=== PATIENT | male | born 2000 | race Caucasian/White ===

== ENCOUNTER 2024-04-19 17:36 | Emergency (ER) | payer OTHER, SELFPAY ==
--- NOTE | ~2024-04-19 | CT_ITS ---
EXAMINATION: CT HEAD WITHOUT CONTRAST CLINICAL INFORMATION: L sided facial numbness x 1 month, hearing issue COMPARISON: None. TECHNIQUE: Contiguous axial imaging was performed from the skull base to vertex without intravenous administration of contrast. Coronal and sagittal reformatted images are performed at the CT scanner. [This CT examination was performed using dose optimization techniques as appropriate, variously including the following: *Automated exposure control *Adjustment of mA and/or kV according to patient size (this includes techniques or standardized protocols for targeted exams where dose is matched to indication/reason for exam; i.e. extremities or head) *Use of iterative reconstruction technique] DLP: 680 mGy-cm. FINDINGS: There is no evidence of acute intracranial hemorrhage or territorial infarction. No abnormal mass-effect or midline shift is seen. Cadena to white matter differentiation is well preserved. No extra-axial fluid collections are identified. The ventricles are normal in size. There is no abnormal attenuation within the brain parenchyma. There is no osseous abnormality. The mastoid air cells and visualized portions of the paranasal sinuses are well-aerated. CT/CT head/brain wo IV con IMPRESSION: No acute intracranial pathology.
[2024-04-19 17:41] VITALS: BP 129/81; PULSE 124; RESP 18; TEMP 36.8; O2SAT 98; BMI 18.6
--- NOTE | 2024-04-19 17:41 | ED_ITS ---
HPI - General Adult General Chief complaint: General Medical Stated complaint: left side of face numb Time Seen by Provider: 04/19/24 21:02 Source: patient and family Mode of arrival: ambulatory Limitations: no limitations History of Present Illness ED Provider: RENEE DE LOS SANTOS narrative: 23 yo male with chronic urologic problems and allergies under the care of urologist here with c/o one month initial L side of face was hot now progressed for the past few weeks to face feeling numb - no pain, swelling, prior infection or related to trauma/dental work. He states he came because he went to urgent care and they didn't know what it was. complaint: L facial numbness Onset (ago): week(s) (3) Location: head and face Radiation: non-radiation Severity: mild Quality: other (numb) Relieving factors: none Exacerbating factors: none Associated symptoms: denies other symptoms Treatments prior to arrival: none Related Data Allergies Allergy/AdvReac Type Severity Reaction Status Date / Time peanut Allergy Intermediate Shortness Verified 04/19/24 17:44 of Breath Review of Systems 2 Review of Systems: Constitutional : No Fever, No Chills, No Fatigue ENT/Mouth : No sore throat, No Rhinorrhea Eyes: No Eye Pain, No Swelling, No Redness Cardiovascular : No Chest Pain, No SOB, No Dyspnea on Exertion Respiratory : No Cough, No Sputum Gastrointestinal : No Nausea, No Vomiting, No Diarrhea, No abdominal Pain Genitourinary : No Dysuria, No Urinary Frequency, No Hematuria, Musculoskeletal : No joint pain, No Myalgias, No Joint Swelling Skin : No Skin Lesions, No rash Neuro : No Weakness, pos Numbness, No Dizziness, no Headache Psych : No Anxiety/Panic, No Depression All other systems reviewed and are negative [facility] Past Medical History Attestation statement: The following information was validated with the patient. Source: old records reviewed Medical History Dysuria Social History Social History (Updated 04/19/24 @ 21:51 by Meche Iqbal DO) Patient Tobacco Use Status: Never used Tobacco Advance Directives: No Advance Directives Information Provided: No Do you have a plan to hurt others: No Plan Physical Exam ED Vital Signs: Vital Signs - 24 hr 04/19/24 17:41 04/19/24 20:13 04/19/24 20:47 Temperature 98.2 F 97.7 F 98.1 F Pulse Rate 124 H 105 H 93 Respiratory Rate 18 17 16 Blood Pressure 129/81 126/80 131/80 Pulse Oximetry 98 100 100 Oxygen Delivery Method Room Air Room Air Room Air 04/19/24 22:00 Temperature Pulse Rate 86 Respiratory Rate 16 Blood Pressure 119/69 Pulse Oximetry 100 Oxygen Delivery Method Room Air BMI result Body Mass Index 18.6 Appearance: Alert. Oriented X3. No acute distress. Eyes: Pupils equal, round and reactive to light. ENT: Pharynx normal. TMs normal bilaterally and ears normal Neck: Normal inspection. Neck supple. CVS: Normal heart rate and rhythm. Pulses normal. Respiratory: No respiratory distress. Breath sounds normal. Abdomen: Soft and nontender. Skin: Skin warm and dry. Normal skin color. Normal skin turgor. Extremities: No lower extremity edema. No calf ttp Neuro: Oriented X 3. No motor deficit. No sensory deficit. states he feels the left side of his face feels different when touching compared to the right Course Course Course Narrative: This is a rapid medical exam. deferred additional HPI, ROS, PE to primary provider. 23 yo male with no known past medical history here with complaints of left sided facial hot /numb x 1.5 months. Originally was cheek area, now feels spreading to the ear/forehead prompting concern. Has appt with PCP in one month. Will obtain labs, EKG Mild tachycardia in triage, other vs stable. Pat Capellan APRN Reevaluation(s) Reevaluation #1: suspect tachcyardia due to anxiety Medical Decision Making Medical Decision Making [facility] Narrative: 23 yo male with chronic urologic problems and allergies here with c/o L sided facial numbness x 1 month at this time he reports it along the facial nerve pathway but has no motor deficits and it is not related to URI will obtain tick panel and then obtain CT scan for mass Differential Diagnosis Differential Diagnoses: The differential diagnosis associated with the presentation includes tick disease, anxiety, mass, peripheral nerve issue Admission/Observation Consideration of admission/observation: Escalation of care including admission/observation considered no acute findings 3+ weeks of symptoms can follow up with PCP Lab Data [facility] Lab Attestation statement: I reviewed the patient's lab results. 04/19/24 17:59 06/30/24 17:59 Labs: Lab Results 04/19/24 Range/Units 17:59 WBC 4.1 L (4.8-10.8) X10*3/uL RBC 5.09 (4.60-5.80) X10*6/uL Hgb 15.2 (14.0-18.0) g/dl Hct 43.1 (42.0-52.0) % MCV 84.7 (80.0-98.0) fL MCH 29.9 (27.0-33.0) pg MCHC 35.3 (31.0-36.0) g/dl RDW 13.1 (11.0-16.0) % Plt Count 242 (160-400) X10*3/uL MPV 10.0 (9.4-12.4) fL Immature Gran % (Auto) 0.2 (0.0-0.4) % Neut % (Auto) 49.1 (45-73) % Lymph % (Auto) 35.4 (20-40) % [place] % (Auto) 13.1 H (2-11) % Eos % (Auto) 1.5 (0-4) % Baso % (Auto) 0.7 (0-2) % Lymph # (Auto) 1.5 (1.2-4.9) X10*3/uL [place] # (Auto) 0.5 (0.1-1.2) X10*3/uL Eos # (Auto) 0.1 (0.0-0.4) X10*3/uL Baso # (Auto) 0.0 (0.0-0.2) X10*3/uL Abs Immat Gran (auto) 0.01 (0.00-0.03) X10*3/uL Absolute Neuts (auto) 2.0 (2.0-8.3) x10*3/uL Absolute Nucleated RBC 0.000 (0.0-0.012) X10*3/uL Nucleated RBC % (auto) 0.0 (0.0-0.2) /100WBC Sodium 142 (135-145) mmol/L Potassium 3.7 (3.3-5.1) mmol/L Chloride 106 (96-108) mmol/L Carbon Dioxide 26 (22-29) mmol/L Anion Gap 14 (12-20) BUN 10 (9-16) mg/dL Creatinine 0.76 (0.5-1.4) mg/dL Estim Creat Clear Calc 123.3 Estimated GFR > 60 Random Glucose 75 (60-115) mg/dL Calcium 10.0 (8.4-10.2) mg/dL Magnesium 2.3 (1.6-2.6) mg/dL Total Bilirubin 1.2 H (0.0-1.0) mg/dL Direct Bilirubin 0.4 (0.0-0.5) mg/dL AST 19 (5-37) U/L ALT 12 (0-40) U/L Alkaline Phosphatase 60 (39-117) U/L Troponin I High Sens < 2.7 (<3.5-35.0) ng/L Total Protein 7.6 (6.5-8.0) g/dL Albumin 4.9 (3.5-5.0) g/dL Independent Interpretation I performed an independent interpretation of an: EKG and CT Scan (normal ) Interpretation: Rate: 123 Rhythm: sinus tachycardia [place]: rightwards Normal P waves. Normal SE[place]IAN. Normal QRS complex. ST T wave : normal no MARCI qTC: 443 prior studies: no acute ischemia The study has been interpreted contemporaneously by me. . Radiology Impression Discussion of test interpretation with radiology: I have reviewed the radiologist's reading. Discharge Plan Discharge Clinical Impression: Paresthesia Patient Disposition: Home, Self-Care Instructions: Paresthesia (ED) Additional Instructions: return for worsening symptoms or concerns follow up with primary care doctor no acute findings today on CT scan or labs tick panel and lyme pending if positive we will call CT can no mass or stroke seen FINDINGS: There is no evidence of acute intracranial hemorrhage or territorial infarction. No abnormal mass-effect or midline shift is seen. Cad[place] to white matter differentiation is well preserved. No extra-axial fluid collections are identified. The ventricles are normal in size. There is no abnormal attenuation within the brain parenchyma. There is no osseous abnormality. The mastoid air cells and visualized portions of the paranasal sinuses are well-aerated. CT/CT head/brain wo IV con IMPRESSION: No acute intracranial pathology. Print Language: Somali
--- NOTE | 2024-04-19 17:44 | ECG_ITS ---
Test Reason : TACHYCARDIA Blood Pressure : / mmHG Vent. Rate : 123 BPM Atrial Rate : 123 BPM P-R Int : 162 ms QRS Dur : 082 ms QT Int : 310 ms P-R-T Axes : 079 096 051 degrees QTc Int : 443 ms Sinus tachycardia Possible Left atrial enlargement Rightward axis Borderline ECG No previous ECGs available Referred By: Renee Capellan Electronically Signed By:CARLOS MANUEL WILBURN
[2024-04-19 18:15] LABS: MANUAL DIFF FLAG NO
[2024-04-19 18:16] LABS: Basophils Percent Auto 0.7 % (0-2); Eosinophils Absolute Auto 0.1 X10*3/uL (0.0-0.4); Eosinophils Percent Auto 1.5 % (0-4); Hematocrit 43.1 % (42.0-52.0); Hemoglobin 15.2 g/dl (14.0-18.0); Imm Gran Abs Auto 0.01 X10*3/uL (0.00-0.03); Imm Gran Pct Auto 0.2 % (0.0-0.4); Lymphocytes Absolute Auto 1.5 X10*3/uL (1.2-4.9); Lymphocytes Percent Auto 35.4 % (20-40); Mean Corpuscular HGB Conc 35.3 g/dl (31.0-36.0); Mean Corpuscular Hemoglobin 29.9 pg (27.0-33.0); Mean Corpuscular Volume 84.7 fL (80.0-98.0); Monocytes Absolute Auto 0.5 X10*3/uL (0.1-1.2); Monocytes Percent Auto 13.1 % (2-11); Neutrophils Percent Auto 49.1 % (45-73); Platelet Count 242 X10*3/uL (160-400); Red Blood Count 5.09 X10*6/uL (4.60-5.80); Red Cell Distribution Width 13.1 % (11.0-16.0); White Blood Count 4.1 X10*3/uL (4.8-10.8)
[2024-04-19 18:34] LABS: Alanine Aminotransferase 12 U/L (0-40); Albumin Level 4.9 g/dL (3.5-5.0); Alkaline Phosphatase 60 U/L (39-117); Anion Gap 14 (12-20); Aspartate Amino Transferase 19 U/L (5-37); Bilirubin Direct 0.4 mg/dL (0.0-0.5); Bilirubin Total 1.2 mg/dL (0.0-1.0); Blood Urea Nitrogen 10 mg/dL (9-16); Carbon Dioxide 26 mmol/L (22-29); Chloride 106 mmol/L (96-108); Creatinine Clr Calc Pharmacy 123.3; Estimated Glomerular Filt Rate > 60; Glucose Random 75 mg/dL (60-115); Magnesium 2.3 mg/dL (1.6-2.6); Potassium 3.7 mmol/L (3.3-5.1); Sodium 142 mmol/L (135-145); Total Protein 7.6 g/dL (6.5-8.0)
[2024-04-19 18:43] LABS: Troponin-I High Sensitivity < 2.7 ng/L (<3.5-35.0)
[2024-04-19 20:13] VITALS: BP 126/80; PULSE 105; RESP 17; TEMP 36.5; O2SAT 100
[2024-04-19 20:47] VITALS: BP 131/80; PULSE 93; RESP 16; TEMP 36.7; O2SAT 100
--- NOTE | 2024-04-19 20:47 | MHC.EDTECH ---
pt resting, vital signs checked, call within reach.
[2024-04-19 22:00] VITALS: BP 119/69; PULSE 86; RESP 16; O2SAT 100
--- NOTE | 2024-04-19 22:03 | MHC.EDTECH ---
pt vital signs checked, pt waiting for CT scan, no questions, call within reach.
--- NOTE | 2024-04-19 22:15 | MHC.EDTECH ---
blood collected per provider order, pt tolerated well, call within reach.
[2024-04-20 00:14] VITALS: BP 111/69; PULSE 98; RESP 17; TEMP 36.4; O2SAT 98
[2024-04-20 00:16] VITALS: BP 111/69; PULSE 98; RESP 17; TEMP 36.4; O2SAT 98
[2024-04-21 17:53] LABS: Lyme Abs Screen <0.90 index
[2024-04-22 07:27] LABS: A. Phagocytphilium DNA,RT-PCR NOT DETECTED (NOT DETECTED); Babesia Microti DNA, RT-PCR NOT DETECTED (NOT DETECTED); Borrelia Miyamotoi,DNA RT-PCR NOT DETECTED (NOT DETECTED); E.Chaffeensis DNA RT-PCR NOT DETECTED (NOT DETECTED); Lyme(Borrelia ssp)DNA RT-PCR NOT DETECTED (NOT DETECTED)
== END 2024-04-20 00:17 | disposition home or self-care (01) ==
PROVIDERS: Nurse Practitioner Family; Emergency Provider Emergency Medicine
DX: R00.0 Tachycardia, unspecified (principal); R20.2 Paresthesia of skin; R51.9 Headache, unspecified; Z79.899 Other long term (current) drug therapy
CPT/HCPCS: 36415; 70450; 80048; 80076; 83735; 84484; 85025; 86617; 86618; 87468; 87469; 87478; 87484; 87798; 93005; 99284

== ENCOUNTER → 2024-04-19 17:44 | Outpatient (BNV) | payer OTHER, SELFPAY | PROVIDERS: Emergency Provider Emergency Medicine; Visit Provider Internal Medicine | DX: R00.0 Tachycardia, unspecified (principal); R94.31 Abnormal electrocardiogram [ECG] [EKG] | CPT/HCPCS: 93010 ==

== ENCOUNTER 2025-09-21 16:14 | Inpatient (IN) | payer OTHER, SELFPAY ==
--- OUTSIDE RECORDS SUMMARY | 2025-09-20 11:56 | XMS_ITS | Encounter Summary ---
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 [facility] Opiate Screen, Ur Negative Negative 025 1:50 PM EST [facility] Cannabinoid (THC) Screen, Ur Negative Negative 09/20/2025 1:50 PM EST [facility] Comment:Specimens from patie nts taking pantoprazole sodium (Protonix) have been shown to produce false positive results. Oxycodone Screen, Ur Negative Negative 10/2024 1:50 PM EST [facility] Fentanyl, Ur Negative Negative 09/20/2025 1:50 PM [facility] Urine Urine specimen obtained by clean catch procedure / Unknown Non-blood Collection / Unknown 09/20/2025 1:01 PM EST 09/20/2025 1:[address] [facility] - 09/20/2025 1:50 PM EST Assay cutoffs: Amphetamines 1000 ng/mL Barbiturates 200 ng/mL Benzodiazepines 200 ng/mL Cocaine 300 ng/mL Fentanyl 1 ng/mL Opiates 300 ng/mL Oxycodone 100 ng/mL THC 50 ng/mL Semi-quantitative assay for screening purposes only. Unconfirmed screening result should not be used for non-medical purposes. *ALTERNATE METHOD CONFIRMATION DONE UPON REQUEST ONLY* Rufino Henderson MD LAB URINE ORDERABLES Final Resu lt [facility] [address] [place] [address], [place] [phone] * (ABNORMAL) CBC auto differential (09/20/2025 12:13 PM EST) WBC 4.7(L) 4.8 - 10.8 K/mcL LAB HEMETOLOGY METHOD 09/20/2025 12:49 PM EST [facility] RBC 5.00 4.50 - 5.50 M/mcL LAB HEMETOLOGY METHOD 09/20/2025 12:49 PM EST [facility] Hemoglobin 14.5 13.5 - 17.5 g/dL LAB HEMETOLOGY METHOD 09/20/2025 12:49 PM [facility] Hematocrit 42.1 42.0 - 54.0 % LAB HEMETOLOGY METHOD 09/20/2025 12:49 PM [facility] MCV 83.7 79.0 - 98.0 FL LAB HEMETOLOGY METHOD 09/20/2025 12:49 PM [facility] MCH 28.8 27.0 - 32.0 pcg LAB HEMETOLOGY METHOD 09/20/2025 12:49 PM [facility] MCHC 34.4 32.0 - 37.0 g/dL LAB HEMETOLOGY METHOD 09/20/2025 12:49 PM [facility] RDW 13.5 11.0 - 15.0 % LAB HEMETOLOGY METHOD 09/20/2025 12:49 PM [facility] Platelets 213 130 - 400 K/mcL LAB HEMETOLOGY METHOD 09/20/2025 12:49 PM [facility] MPV 9.8 7.0 - 11.0 FL LAB HEMETOLOGY METHOD 09/20/2025 12:49 PM [facility] NRBC 0.0 <1.0 % LAB HEMETOLOGY METHOD 09/20/2025 12:49 PM [facility] NRBC Absolute 0.00 <0.10 K/mcL LAB HEMETOLOGY METHOD 09/20/2025 12:49 PM [facility] Neutrophils Relative 52.0 % LAB HEMETOLOGY METHOD 09/20/2025 12:49 PM [facility] Lymphocytes Relative 34.0 % LAB HEMETOLOGY METHOD 09/20/2025 12:49 PM [facility] Monocytes Relative 10.3 % LAB HEMETOLOGY METHOD 09/20/2025 12:49 PM [facility] Eosinophils Relative 2.6 % LAB HEMETOLOGY METHOD 09/20/2025 12:49 PM [facility] Basophils Relative 0.9 % LAB HEMETOLOGY METHOD 09/20/2025 12:49 PM [facility] Immature Granulocytes Relative 0.2 % LAB HEMETOLOGY METHOD 09/20/2025 12:49 PM [facility] Neutrophils Absolute 2.44 1.50 - 7.00 K/mcL LAB HEMETOLOGY METHOD 09/20/2025 12:49 PM [facility] Lymphocytes Absolute 1.59 1.00 - 5.00 K/mcL LAB HEMETOLOGY METHOD 09/20/2025 12:49 PM [facility] Monocytes Absolute 0.48 0.20 - 1.00 K/mcL LAB HEMETOLOGY METHOD 09/20/2025 12:49 PM [facility] Eosinophils Absolute 0.12 0.00 - 0.50 K/mcL LAB HEMETOLOGY METHOD 09/20/2025 12:49 PM [facility] Basophils Absolute 0.04 0.00 - 0.20 K/mcL LAB HEMETOLOGY METHOD 09/20/2025 12:49 PM [facility] Immature Granulocytes Absolute 0.01 0.00 - 0.03 K/mcL LAB HEMETOLOGY METHOD 09/20/2025 12:49 PM [facility] Blood Venous blood specimen / Unknown Venipuncture / Unknown 09/20/2025 12:13 PM EST 09/20/2025 12:32 PM EST us Rufino Henderson MD LAB BLOOD ORDERABLES Final Resu lt [facility] [address] [place] [address], * Salicylate level (09/20/2025 12:13 PM EST) Salicylate Level <3.0 2.0 - 29.0 mg/dL 09/20/2025 1:32 PM EST [facility] Blood Venous blood specimen / Unknown Venipuncture / Unknown 09/20/2025 12:13 PM EST 09/20/2025 12:32 PM EST us Rufino Henderson MD LAB BLOOD ORDERABLES Final Resu lt Performing Organization Address City/[facility]/ZIP Co de Phone Number [facility] [address] [place] [address], [place] [phone] * (ABNORMAL) Acetaminophen level (09/20/2025 12:13 PM EST) Acetaminophen Level <2.0(L) 10.0 - 30.0 mcg/mL 09/20/2025 2:57 PM EST [facility] Blood Venous blood specimen / Unknown Venipuncture / Unknown 09/20/2025 12:13 PM EST 09/20/2025 12:32 PM EST us Rufino Henderson MD LAB BLOOD ORDERABLES Final Resu lt Performing Organization Address [facility]/ZIP Co de Phone Number [facility] [address] [place] [address], [place] [phone] * Ethanol (09/20/2025 12:13 PM EST) Ethanol Level <3 0 - 10 mg/dL 09/20/2025 1:32 PM EST [facility] Blood Venous blood specimen / Unknown Venipuncture / Unknown 09/20/2025 12:13 PM EST 09/20/2025 12:32 PM EST us Rufino Henderson MD LAB BLOOD ORDERABLES Final Resu lt Performing Organization Address City/[facility]/ZIP Co de Phone Number [facility] [address] [place] [address], [place] [phone] * (ABNORMAL) Comprehensive metabolic panel (09/20/2025 12:13 PM [facility]) Sodium 138 133 - 145 mmol/L 09/20/2025 1:31 PM [facility] Potassium 3.4(L) 3.5 - 5.5 mmol/L 09/20/2025 1:31 PM [facility] Chloride 100 96 - 110 mmol/L 09/20/2025 1:31 PM [facility] CO2 27 21 - 32 mmol/L 09/20/2025 1:31 PM [facility] Anion Gap 11 3 - 11 09/20/2025 1:31 PM [facility] Glucose 98 70 - 100 mg/dL 09/20/2025 1:31 PM [facility] BUN 17 5 - 25 mg/dL 09/20/2025 1:31 PM [facility] Creatinine 0.84 0.70 - 1.30 mg/dL 09/20/2025 1:31 PM [facility] eGFR 126 >=60 mL/min/1. 73m2 09/20/2025 1:31 PM [facility] Comment:Calculation based on the Chronic Kidney Disease Epidemiology Collaboration (CKD-EPI) equation refit without adjustment for race. BUN/Creatinine Ratio 20.2 09/20/2025 1:31 PM [facility] Calcium 8.4(L) 8.5 - 10.5 mg/dL 09/20/2025 1:31 PM [facility] AST (SGOT) 19 10 - 42 unit/L 09/20/2025 1:31 PM [facility] ALT (SGPT) 19 10 - 60 unit/L 09/20/2025 1:31 PM [facility] Alkaline Phosphatase 76 42 - 121 unit/L 09/20/2025 1:31 PM [facility] Total Protein 7.3 6.0 - 8.0 g/dL 09/20/2025 1:31 PM EST [facility] Albumin 4.7 3.2 - 5.0 g/dL 09/20/2025 1:31 PM EST [facility] Total Bilirubin 0.6 0.0 - 1.4 mg/dL 09/20/2025 1:31 PM EST [facility] Blood Venous blood specimen / Unknown Venipuncture / Unknown 09/20/2025 12:13 PM EST 09/20/2025 12:32 PM EST us Rufino Henderson MD LAB BLOOD ORDERABLES Final Resu lt [facility] [address] [place] [address], documented in this encounter Visit Diagnoses Diagnosis Suicidal ideation- Primary documented in this encounter Orders Diet Count Last Ordered Date First Orde red Date ADULT DIET 1 09/21/2025 Nursing Count Last Ordered Date First Orde red Date VITAL SIGNS 1 09/20/2025 Consult Count Last Ordered Date First Orde red Date IP CONSULT TO PROP ATTENDANT 1 09/20/2025 Precaution Count Last Ordered Date First Orde red Date SUICIDE PRECAUTIONS 1 09/20/2025 Privilege Level Count Last Ordered Date First O rdered Date PATIENT PANAMA HAT BLOCKER 1 09/20/2025 documented in this encounter Care Teams Facility Supervisor Relationship Specialty Start Date End Date Physician, No Pcp PCP - General 09/20/25 documented as of this encounter
--- OUTSIDE RECORDS SUMMARY | 2025-09-21 17:17 | XMS_ITS | Clinical Summary ---
Author Organization [facility] Address [address] [place] [address] Phone Care Team Providers Care Parts Washer Name Role Phone Monserrat BOWMAN, Jesika Vargas Primary Care Provider [phone] Jesika German MD Unavailable [phone] Problems Includes: Problems addressed during this encounter and other active Problems Current Visit Onset Date Resolved Date Provider Altafo n Status Arthralgias Multiple Sites 08/02/2022 Ritu Crow APRN Active Last Documented On 08/02/2022 7:31AM ; [facility] Note: Unchanged Tingling of the Limbs 08/02/2022 Godfrey Crow APRN Active Last Documented On 08/02/2022 7:31AM ; [facility] Note: Unchanged Past Visits Onset Date Resolved Date Provider Condition Status Lactose Intolerance Unknown Jesika anton MD Active Last Documented On 5:40PM ; [facility] Plan of Treatment Advised we would call or send a letter with test results, if does not here from us advised to call us for results - Last Documented On 08/02/2022 7:35AM ; [facility] Advised patient to make sure he is drinking 2 quarts of caffeine free fluids daily and eating healthy - Last Documented On 08/02/2022 7:35AM ; [facility] Medications Includes: Medications discussed during this encounter and other current Medications Past Medications on file methylPREDNISolone 4 MG Oral Tablet Therapy Pack 08/16/2022 - 08/22/2022 Provider: Ritu Crow APRN Diagnosis: Pain in unspecif ied joint as directed Last Documented On 2 11:36AM By Ritu Crow APRN ; [facility] Medications Administered Includes: Administered Medications from this encounter No Administered Medications Recorded Vital Signs Includes: Vital Signs from this encounter Vital Name 08/01/2022 02:47P Blood Pressure Sitting (mmHg) 112/72 Pulse Rate-Sitting (bpm) 94 Height (in) 69 Weight (lb) 124 Body Mass Index (kg/m2) 18.3 Body Surface Area (m2) 1.7 Oxygen Saturation (%) 99 Last Documented: On 08/02/2022 7:30AM ; [facility] 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 No tobacco use 01/16/2021 Last Documented On 2 2:46PM ; [facility] Not a social drinker 01/16/2021 Last Documented On 2 2:46PM ; [facility] Not currently 01/16/2021 Last Documented On 2 2:46PM ; [facility] Not using drugs 01/16/2021 Last Documented On 2 2:46PM ; [facility] Never a smoker 01/16/2021 Last Documented On 2 2:46PM ; [facility] Patient does not have living will 2020 Last Documented On 2 2:46PM ; [facility] Use of tobacco assessment performed 12/20 Last Documented On 2 2:46PM ; [facility] Smoking Status Unknown Medical History Includes: Medical History addressed during this encounter Description Last Updated Compliant with medications 08/02/2022 Last Documented On 2 7:35AM ; [facility] No recent change in medical history 07/21 Last Documented On 2 7:35AM ; [facility] Yes patient feels confident managing chr onic conditions 01/16/2021 Last Documented On 2 2:46PM ; [facility] Physical Exam Includes: Physical Exam from this encounter Allergies Includes: Active Allergies No Known Allergies Encounters Encounter Provider Location Date Check-In Time Check-Out Time Diagnosis Acute / Sick Visit Ritu Crow FAT PURIFICATION WORKER [facility] 605 08/01/20 22 2:15PM 3:17PM Arthralgias Multiple Sites,Assessme nt of Tingling of the Limbs,Eye Disorders Vision
--- OUTSIDE RECORDS SUMMARY | 2025-09-21 17:18 | XMS_ITS | Encounter Summary ---
Author Organization [facility] Address [address] [place] [address] [place] [address] Phone Care Team Providers Care Traveling Sales Executive Name Role Phone Pcp, Unknown Primary Care Provider Azra Ibanez Unavailable [phone] Encounter Details Date Type Department Care Team (Late st Contact Info) Description 05/22/2024 Transcribe Orders [facility] [address] [place] [address] Joselito Payton MD [address] [address] Social History Tobacco Use Types Packs/Day Years Used Date Smoking Tobacco: Never Assessed Education Answer Date Recorded Are you interested in more education? Not on alejandrina e 06/27/2023 Are you concerned about learning? Not on file 06/27/2023 No 06/27/2023 No 06/27/2023 Digital Access Answer Date Recorded No 06/27/2023 No 06/27/2023 Reliable internet access at home? Not on file 06/27/2023 Device with a working camera? Not on file Intimate Partner Violence Answer Date R ecorded Are you denied basic needs s uch as food, clothing, or medical care? No 06/27/2023 In the past 12 months have y ou been in a relationship with a person who hurts, threatens, or tries to control you? No 06/27/2023 Are you denied basic needs s uch as food, clothing, or medical care? No 06/27/2023 In the past 12 months have y ou been in a relationship with a person who hurts, threatens, or tries to control you? No 06/27/2023 Sex and Gender Information Value Date Recorded Sex Assigned at Not on file Legal Sex Male 6:54 PM EDT Gender Identity Not on file Sexual Orientation Not on file documented as of this encounter Plan of Treatment Not on file documented as of this encounter Visit Diagnoses Not on filedocumented in this encounter Care Teams Traveling Sales Executive Relationship Specialty Start Date End Date Pcp, Unknown PCP - General 06/27/23 Azra Hawthorne PA [address] [place] [address] Physician Upper Extremity Surgeon 12/28/24 documented as of this encounter Additional Source Comments The information contained in this document represents components of the legal health record. It is not the complete legal health record.[facility]
--- OUTSIDE RECORDS SUMMARY | 2025-09-21 17:18 | XMS_ITS | Data Portability ---
Author Organization [facility], [address] Address [address] [place] [address] Assessment No assessment recorded. Plan of Treatment Reminders Order Date Submit Date Provider Last Modified By Organization Details Last Modified Time Details Appointments None recorded. Lab None recorded. Referral ENT surgery referral - tenderness and pain x 1 month, need further evaluation and treatment. failing conservativ e treatment. 2023 024 [email or web address] Quinton Luong MD, [address], [facility] [address], [place], [address], 18:21:29 Procedures None recorded. Surgeries None recorded. Imaging None recorded. Medication Orders None recorded. Patient TargetsNo targets recorded. Patient Instructions Encounter Date Encounter Id Patient Instructions Last Modified By Organization Details Last Modified Time 04/17/2024 [id number] head or face pain: care instructions [email or web address] Not available 04/17/2024 18:11:49 Reason for Referral ENT Surgery Referral for Ten derness over maxillary sinus tenderness and pain x 1 month, need further evaluation and treatment. failing conservative treatment tenderness and pain x 1 month, need further evaluation and treatment. failing conservative treatment. Referring Physician: Marc Umaña, Urgent Care, Encounter Date: 04/17/2024 Problems Name Problem SNOMED Code Status Onset Date Resolution Date Notes Provider Name and Address Organization Details Recorded Time Tenderness over maxillary sinus [id number] Active 024 Marc Umaña NP [address] [place], [address], [facility] 18:07:26 Problem Notes None recorded. Medical Equipment None Reported. Vitals Date Recorded Body height Body mass index (BMI) Body weight Respiratory rate Pain severity - 0-10 verbal numeric rating [Score] - Reported Oxygen saturation Heart rate Body temperature Systolic And Diastolic Provider Name and Address Organization Details Last Updated DateTime 175.26 cm 18.5 kg/m2 18777.0 5 g 18 /min 4 98 % 82 /min 98.5 [degF] 112/72 mm[Hg] Lubna Montilla PA - [facility] 17:17:54 Social History Question Answer Notes LastModified by [employer] Details LastModified Time Tobacco Smoking Status Never Smoker Lubna [email or web address] PA - [facility] 04/17/2024 17:15:31 What Is The Highest Grade Or Level Of School You Have Completed Or The Highest Degree You Have Received? [id number] [email or web address] Information not available 04/17/2024 Have You Had A Flu Shot This Season? No [email or web address] Information not available 04/17/2024 If No, Would You Like A Flu Shot Today? A/P [email or web address] Information not available 04/17/2024 Have You Had Direct Contact, Or Contact During Intimacy, With Monkeypox Rash, Scabs, Or Body Fluids From A Person With Monkeypox? No [email or web address] Information not available 04/17/2024 What Was The Date Of Your Most Recent Tobacco Screening? 04/17/2024 [email or web address] Information not available 04/17/2024 Have You Recently Traveled Abroad? No [email or web address] Information not available 04/17/2024 Are You Currently In School? Yes [email or web address] Information not available 04/17/2024 Sex: Unknown Functional Status Question Answer Note LastModified by [employer] Details LastModified Time Do you use any illicit or recreational drugs? No [email or web address] Information not available 04/17/2024 Do you or have you ever used any other forms of tobacco or nicotine? No [email or web address] Information not available 04/17/2024 What is your level of alcohol consumption? None [email or web address] Information not available 04/17/2024 Are you currently employed? No [email or web address] Information not available 04/17/2024 Mental Status None recorded. Family History Relationship Description Onset Age of this Age Resolved Age Notes LastModified by Organization Details LastModified Time Father No current problems or disability [email or web address] Not available 17:14:52 Mother No current problems or disability [email or web address] Not available 17:14:52 Medical History No medical history recorded. Past Encounters Encounter ID Performer Location Encounter Start Date Encounter Closed Date Diagnosis/Indication Diagnosis SNOMED-CT Code Diagnosis ICD10 Code Diagnosis IMO Codes Diagnosis Note [id number] Marc Umaña, [employer] [address] [place] [address] 04/17/2024 15:58:57 04/17/2024 18:21:29 Tenderness over maxillary sinus 270551861 R51.9 Sinusitis is an infection of the lining of the sinus cavities in your head. Sinusitis often follows a cold. It causes pain and pressure in your head and face. In most cases, sinusitis gets better on its own in 1 to 2 weeks. But some mild symptoms may last for several weeks. Sometimes antibiotic s are needed. if you are having problems. It's also a good idea to know your test results and keep a list of the medicines you take. How can you care for yourself at home? Take an over-the-c ounter pain medicine. Avoid Ibuprofen, Aleve and Aspirin if . If the doctor prescribed antibiotic s, take them as directed. Do not stop taking them just because you feel better. You need to take the full course of antibiotic s. Be careful when taking over-the-c ounter cold or influenza (flu) medicines and Tylenol at the same time. Many of these medicines have acetaminop hen, which is Tylenol. Read the labels to make sure that you are not taking more than the recommende d dose. Too much acetaminop hen (Tylenol) can be harmful. Breathe warm, moist air from a steamy shower, a hot bath, or a sink filled with hot water. Avoid cold, dry air. Using a humidifier in your home may help. Follow the directions for cleaning the machine. Use saline (saltwater ) nasal washes. This can help keep your nasal passages open and wash out mucus and bacteria. You can buy saline nose drops at a grocery store or drugstore. Or you can make your own at home by adding 1 teaspoon (5 millilitre s) of salt and 1 teaspoon (5 millilitre s) of baking soda to 2 cups (500 mL) of distilled water. If you make your own, fill a bulb syringe with the solution, insert the tip into your nostril, and squeeze gently. Blow your nose. Put a hot, wet towel or a warm gel pack on your face 3 or 4 times a day for 5 to 10 minutes each time. Try a decongesta nt nasal spray like oxymetazol ine (Drixoral) . Do not use it for more than 3 days in a row. Using it for more than 3 days can make your congestion worse. Health Concerns Section Related Observation LastModified by Organization Detai ls LastModified Time None Recorded Concern Status LastModified by Organization Details LastModified Time None Recorded Advance Directives Directive None Recorded Payers Insurance Date Sequence Insurance Name Policy Number Policy Hill Covered Member ID Hill Member ID Guarantor Name 04/17/2024 1 [employer] (POS) [id number] Deangelo Rendon [id number] Juan Carlos Keen Notes Date Note Type Note Provider Name and Address Organization Details Recorded Time 4 text/html Facial ProblemReported by PatientHPIFor location, patient reportsface leftandupper maxilla(patient is on doxycycline getting pain, numbness and tingling feeling for more then 1 month on left maxillary sinus . no tooth problem. need referral to ent.). For severity, patient reportsworseningbut reportsmild. For associated symptoms, patient reportsnasal congestion,tenderness, andfacial painbut reportsno erythema,no earache,no loss of hearing,no discharge from the ears,no tinnitius,no vertigo,no nausea,no vomiting,no dizziness,no disequilibrium,no eye watering,no dry eyes,no pain in the jaw,no nasal discharge,no slurred speech,no difficulty chewing,no swelling,no difficulty speaking,no hearing loss, andno facial twitch. For onset/timing, patient reportsgradualandmonthly. For quality, patient reportsnumb,tingling, andaching. For duration, patient reports1 monthsandconstant. For context, patient reportsrecent upper respiratory infection. For alleviating factors, patient reportsnone. For aggravating factors, patient reportsnoneandtouching face. Marc Umaña NP [address] [place], [address], [place] - [facility] 04/17/2024 18:12:09
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
--- OUTSIDE RECORDS SUMMARY | 2025-09-21 17:18 | XMS_ITS ---
Author Organization [facility] Address [address] [place] [address] Phone Care Team Providers Care Negative Turner Apprentice Name Role Phone Jesika German MD Primary Care Provider [phone] Jesika German MD Unavailable [phone] Problems Includes: Active, inactive, and resolved Problems All Visits Onset Date Resolved Date Provider Condition S tatus Arthralgias Multiple Sites 08/02/2022 Ritu Crow APRN Active Last Documented On 08/02/2022 7:31AM ; [facility] Note: Unchanged Tingling of the Limbs 08/02/2022 Godfrey Crow APRN Active Last Documented On 08/02/2022 7:31AM ; [facility] Note: Unchanged Lactose Intolerance Unknown Jesika German MD Active Last Documented On 1 5:40PM ; [facility] Plan of Treatment Instructions to patient Return to the clinic if cond ition worsens or new symptoms arise Last Documented On 2 1:17PM ; [facility] Education and Decision Aids were provided during visit for: Clinical staff counseled pat ient to adopt healthy behaviors as appropriate Last Documented On 1 11:55AM ; [facility] Instructions Includes: Instructions for all patient encounters Instructions to patient Return to the clinic if cond ition worsens or new symptoms arise Last Documented On 2 1:17PM ; [facility] Education and Decision Aids were provided during visit for: Clinical staff counseled pat ient to adopt healthy behaviors as appropriate Last Documented On 11:55AM ; [facility] Medications Includes: Current and historical Medications Past Medications on file methylPREDNISolone 4 MG Oral Tablet Therapy Pack 08/16/2022 - 08/22/2022 Provider: Ritu Crow APRN Diagnosis: Pain in unspecif ied joint as directed Last Documented On 2 11:36AM By Ritu Crow APRN ; [facility] Medications Administered Includes: Administered Medications in patient's chart No Administered Medications Recorded Vital Signs Includes: Vital Signs through 09/21/2025 Vital Name 08/16/2022 10:51A 08/01/2022 02:47P 01/16 11:54A Blood Pressure Sitting (mmHg) 122/70 112/72 Pulse Rate-Sitting (bpm) 88 94 113 Weight (lb) 125 124 117 Oxygen Saturation (%) 98 99 Height (in) 69 69 Body Mass Index (kg/m2) 18.3 17.3 Body Surface Area (m2) 1.7 1.6 Blood Pressure Sitting L 118/74 BP Cuff Size Regular Temp-Temporal 98.4 BMI Percentile (percentile) 1 Last Documented: On 08/16/2022 10:55A M ; [facility] On 08/02/2022 7:30AM ; [facility] On 01/16/2021 11:54AM ; [facility] Results Includes: Results through 09/21/2025 CBC AND PLT [place] [facility] Ordered by Ritu Crow APRN on Collected: 08/03/2022 Reported: 08/03/20 22 17:52 Last Documented On 2 2:19PM ; [facility] Reviewed by Ritu zimmerman APRN on 08/05/2022; All test results are final unless otherwise noted. WBC 4.6 10x3/ul (4.5-11.0) N (Normal) Last Documented On 2 10:12PM ; [facility] RBC 4.98 10X6/uL (4.50-5.90) N (Normal) Last Documented On 2 10:12PM ; [facility] HEMOGLOBIN 14.6 g/dL (14.0-17.5) N (Normal) Last Documented On 10:12PM ; [facility] HEMATOCRIT 42.3 % (40.0-52.0) N (Normal) Last Documented On 10:12PM ; [facility] MCV 84.9 fL (80.0-100.0) N (Normal) Last Documented On 10:12PM ; [facility] MCH 29.3 pg (25.0-32.0) N (Normal) Last Documented On 10:12PM ; [facility] MCHC 34.5 g/dL (31.0-37.0) N (Normal) Last Documented On 10:12PM ; [facility] RDW SD 40.9 fL (37.0-54.0) N (Normal) Last Documented On 10:12PM ; [facility] RDW CV 13.3 % (11.0-16.0) N (Normal) Last Documented On 10:12PM ; [facility] PLATELET COUNT 221 10x3/uL (150-400) N (Normal) Last Documented On 10:12PM ; [facility] MPV 11.3 fL (8.2-12.2) N (Normal) Last Documented On 10:12PM ; [facility] SEG 52 % (29-66) N (Normal) Last Documented On 10:12PM ; [facility] LYMPH 35 % (15-49) N (Normal) Last Documented On 10:12PM ; [facility] MONOS 11 % (2-14) N (Normal) Last Documented On 10:12PM ; [facility] EOSINS 1 % (0-5) N (Normal) Last Documented On 10:12PM ; [facility] BASOPHIL 1 % (0-2) N (Normal) Last Documented On 10/14/202 2 10:12PM ; [facility] NUCLEATED RBCS 0 /100WBC (0-1) N (Normal) Last Documented On 2 10:12PM ; [facility] META,MYELO,PRO 0 % (0-5) N (Normal) Last Documented On 2 10:12PM ; [facility] ABSOLUTE NEUT COUNT 2.39 10x3/uL (1.50-7.00) N (Normal) Last Documented On 2 10:12PM ; [facility] Note: CC'd Providers: Specimen Number: [id number] SED RATE [place] Ordered by Ritu Crow APRN on Collected: 08/03/2022 Reported: 08/03/20 22 18:12 Last Documented On 2 2:19PM ; [facility] Reviewed by Ritu Mike in JEWEL LATHE OPERATOR on 08/05/2022; All test results are final unless otherwise noted. SED RATE <1 mm/hr (0-15) N (Normal) Last Documented On 2 10:12PM ; [facility] Note: CC'd Providers: Specimen Number: [id number] VITAMIN D,25 HYDROXY [place] Ordered by Ritu Crow APRN on Collected: 08/03/2022 Reported: 08/03/20 22 18:19 Last Documented On 2 2:19PM ; [facility] Reviewed by Ritu Mike in JEWEL LATHE OPERATOR on 08/05/2022; All test results are final unless otherwise noted. VITAMIN D,25 HYDROXY 15.5 ng/mL (20-100) L (Low) Last Documented On 2 10:12PM ; [facility] Note: PEDIATRIC Vitamin D Status Range ng/mLDeficiency <15Insufficiency 15 - 19Sufficiency 20 - 100CC'd Providers: Specimen Number: [id number] COMP METABOLIC PANEL [place] [facility] Ordered by Ritu Crow APRN on Collected: 08/03/2022 Reported: 08/03/20 22 18:21 Last Documented On 2 2:19PM ; [facility] Reviewed by Ritu Mike in JEWEL LATHE OPERATOR on 08/05/2022; All test results are final unless otherwise noted. ALB/GLOB RATIO 1.3 (1.0-2.2) N (Normal) Last Documented On 2 10:12PM ; [facility] Note: CC'd Providers: Specimen Number: [id number] GLUCOSE 78 mg/dL (70-100) N (Normal) Last Documented On 2 10:12PM ; [facility] SODIUM 137 mmol/L (132-144) N (Normal) Last Documented On 10:12PM ; [facility] POTASSIUM 4.4 mmol/L (3.5-5.1) N (Normal) Last Documented On 10:12PM ; [facility] CHLORIDE 103 mmol/L (98-110) N (Normal) Last Documented On 10:12PM ; [facility] CO2 28 mmol/L (21-32) N (Normal) Last Documented On 10:12PM ; [facility] BUN 13 mg/dL (6-20) N (Normal) Last Documented On 10:12PM ; [facility] CREATININE 0.85 mg/dL (0.70-1.30) N (Normal) Last Documented On 10:12PM ; [facility] GFR, >60 mL/mn (>60) N (Normal) Last Documented On 10:12PM ; [facility] Note: Note: The calculated GFR value ass umes an average adult body size with asurface area of 1.73 square meters. For unusually large or small patients, anadjustment should be made. GFR, AFR. AMER >60 mL/mn (>60) N (Normal) Last Documented On 2 10:12PM ; [facility] CALCIUM 9.6 mg/dL (8.3-9.9) N (Normal) Last Documented On 10:12PM ; [facility] TOTAL BILIRUBIN 1.9 mg/dL (0.2-1.3) H (High) Last Documented On 2 10:12PM ; [facility] ALK PHOS 84 U/L (26-162) N (Normal) Last Documented On 2 10:12PM ; [facility] AST/SGOT 17 U/L (15-37) N (Normal) Last Documented On 2 10:12PM ; [facility] ALT/SGPT 30 U/L (16-61) N (Normal) Last Documented On 2 10:12PM ; [facility] TOTAL PROTEIN 8.0 G/dL (6.4-8.3) N (Normal) Last Documented On 2 10:12PM ; [facility] ALBUMIN 4.5 G/dL (3.2-4.8) N (Normal) Last Documented On 2 10:12PM ; [facility] GLOBULIN 3.5 G/dL (2.0-4.2) N (Normal) Last Documented On 2 10:12PM ; [facility] C REACTIVE PROTEIN [place] [facility] Ordered by Ritu Crow APRN on Collected: 08/03/2022 Reported: 08/03/20 22 18:21 Last Documented On 2 2:19PM ; [facility] Reviewed by Ritu zimmerman APRN on 08/05/2022; All test results are final unless otherwise noted. C REACTIVE PROTEIN <0.3 mg/dL (<0.3) N (Normal) Status: Correction Last Documented On 2 10:12PM ; [facility] Note: NOTE: This test should not be used to determine cardiac risk. The Cardio CRP(HsCRP) is the appropriate test for cardiac risk stratification.NOTE: This test should not be used to determine cardiac risk. The Cardio CRP(HsCRP) is the appropriate test for cardiac risk stratification.CORRECTED ON 08/03 AT 1821: PREVIOUSLY REPORTED <0.3 NOTE: This test shouldnot be used to determine cardiac risk. The Cardio CRP (HsCRP) is theappropriate test for cardiac risk stratification.CC'd Providers: Specimen Number: [id number] LIPID PROF Jian TOWNSEND [facility] Ordered by Ritu Crow JEWEL LATHE OPERATOR on Collected: 08/03/2022 Reported: 08/03/20 22 18:21 Last Documented On 2 2:19PM ; [facility] Reviewed by Ritu Mike in JEWEL LATHE OPERATOR on 08/05/2022; All test results are final unless otherwise noted. CHOLESTEROL 124 mg/dL (107-240) N (Normal) Last Documented On 2 10:12PM ; [facility] TRIGLYCERIDES 62 mg/dL (40-199) N (Normal) Last Documented On 10:12PM ; [facility] HDL CHOLESTEROL 46 mg/dL (35-67) N (Normal) Last Documented On 10:12PM ; [facility] TOTAL/HDL RATIO 2.7 N (Normal) Last Documented On 2 10:12PM ; [facility] LDL CHOLEST 66 mg/dL N (Normal) Last Documented On 2 10:12PM ; [facility] Note: ADULT .............OPTIMAL DESIRAB LE BORDERLINE HIGHRISK VERYHIGH CHOLESTEROL <200 200-240 >240TRIGLYCERIDE <150 150-199 200-500 >500LDL CHOL DIR <100 100-129 130-160 160-189 >/=190HDL CHOLEST. >/=60 <40 The above guidelines follow the national cholesterol education program (NCEP)adult treatment panel III revisions. They are intended to inform, not replace,the physician's clinical judgement. Other risk factors must be considered inestablishing therapeutic goals. HDL CHD RISK 1.00 N (Normal) Status: Correction Last Documented On 2 10:12PM ; [facility] TOT:HDL CHD RISK 1.0 (Low) N (Normal) Status: Correction Last Documented On 10:12PM ; [facility] Note: The above TC:HDL CHD relative risk estimates are for people who also have lowcardio-CRP values, IE. <0.7 mg/L.CC'd Providers: Specimen Number: [id number] TSH [place] [facility] Ordered by Ritu Crow APRN on Collected: 08/03/2022 Reported: 08/03/20 22 18:21 Last Documented On 2 2:19PM ; [facility] Reviewed by Ritu Mike in JEWEL LATHE OPERATOR on 08/05/2022; All test results are final unless otherwise noted. TSH 0.596 uIU/mL (0.463-3.980) N (Normal) Last Documented On 2 10:12PM ; [facility] Note: CC'd Providers: Specimen Number: [id number] LDH [place] [facility] Ordered by Ritu Crow APRN on Collected: 08/03/2022 Reported: 08/03/20 18:21 Last Documented On 2 2:19PM ; [facility] Reviewed by Ritu Mike in JEWEL LATHE OPERATOR on 08/05/2022; All test results are final unless otherwise noted. LDH 150 U/L (87-241) N (Normal) Last Documented On 2 10:12PM ; [facility] Note: CC'd Providers: Specimen Number: [id number] VITAMIN B12 [place] [facility] Ordered by Ritu Crow APRN on Collected: 08/03/2022 Reported: 08/03/20 18:51 Last Documented On 2 2:19PM ; [facility] Reviewed by Ritu Mike in JEWEL LATHE OPERATOR on 08/05/2022; All test results are final unless otherwise noted. VITAMIN B12 508 pg/mL (193-986) N (Normal) Last Documented On 2 10:12PM ; [facility] Note: CC'd Providers: Specimen Number: [id number] FOLIC ACID [place] Ordered by Ritu Crow APRN on Collected: 08/03/2022 Reported: 08/03/20 18:51 Last Documented On 2 2:19PM ; [facility] Reviewed by Ritu Miek in JEWEL LATHE OPERATOR on 08/05/2022; All test results are final unless otherwise noted. FOLIC ACID 22.9 ng/mL (3.1-17.5) H (High) Last Documented On 2 10:12PM ; [facility] Note: CC'd Providers: Specimen Number: [id number] HEP C AB [place] Ordered by Ritu Crow APRN on Collected: 08/03/2022 Reported: 08/03/20 19:02 Last Documented On 2 2:19PM ; [facility] Reviewed by Ritu Mike in JEWEL LATHE OPERATOR on 08/05/2022; All test results are final unless otherwise noted. HEP C AB NONREACTIVE (NONREACTIVE) N (Normal) Last Documented On 2 10:12PM ; [facility] Note: CC'd Providers: Specimen Number: [id number] Reported Physicians [place] [place] [facility] Ordered by Ritu Crow APRN on Collected: 08/03/2022 Reported: 08/03/20 19:02 Last Documented On 2 2:19PM ; [facility] Reviewed by Ritu Mike in JEWEL LATHE OPERATOR on 08/05/2022; All test results are final unless otherwise noted. Reported Physicians See Note None Last Documented On 08/03/2022 10:12PM ; [facility] Note: Reported Physicians:Ordering: Ritu Crowding: Jayleen Crow VITAMIN B1, BLOOD [place] Ordered by Ritu Crow APRN on Collected: 08/03/2022 Reported: 08/17/20 05:55 Last Documented On 2 9:32AM ; [facility] Reviewed by Ritu Mike in JEWEL LATHE OPERATOR on 08/17/2022; All test results are final unless otherwise noted. VITAMIN B1, BLOOD 99 N (Normal) Last Documented On 08/17/2022 9:07AM ; [facility] Note: Reference range: 78 to 185Unit: nmol/L Vitamin supplementation within 24 hours prior toblood draw may affect the accuracy of the results.This test was developed and its analytical performancecharacteristics have been determined by [employer] [place], [place]. It hasnot been cleared or approved by the U.S. Food and DrugAdministration. This assay has been validated pursuantto the CLIA regulations and is used for clinicalpurposes.Test Performed by [facility],[address] [place] [id number] Joseph M.D., Ph.D., Director of [phone], CLIA [id number] Providers: Specimen Number: [id number] Reported Physicians [place] [facility] Ordered by Ritu Crow JEWEL LATHE OPERATOR on Collected: 08/03/2022 Reported: 08/17/20 05:55 Last Documented On 2 9:32AM ; [facility] Reviewed by Ritu Mike in JEWEL LATHE OPERATOR on 08/17/2022; All test results are final unless otherwise noted. Reported Physicians See Note None Last Documented On 08/17/2022 9:07AM ; [facility] Note: Reported Physicians:Ordering: Ritu Crwoding: Jayleen Crow Social History Description Last Updated Occupation student at [employer], study ing computer science 01/16/2021 Last Documented On 1 5:43PM ; [facility] No tobacco use 01/16/2021 Last Documented On 1 5:43PM ; [facility] Not a social drinker 01/16/2021 Last Documented On 1 5:43PM ; [facility] Not currently 01/16/2021 Last Documented On 1 5:43PM ; [facility] Not using drugs 01/16/2021 Last Documented On 1 5:43PM ; [facility] Never a smoker 01/16/2021 Last Documented On 1 5:43PM ; [facility] Patient does not have living will 2020 Last Documented On 1 5:43PM ; [facility] Use of tobacco assessment performed 12/20 Last Documented On 1 5:43PM ; [facility] Smoking Status Unknown Medical History Includes: Medical History in patient's chart Description Last Updated No physical trauma 08/16/2022 Last Documented On 2 1:21PM ; [facility] Compliant with medications 08/02/2022 Last Documented On 2 7:35AM ; [facility] No recent change in medical history 07/21 Last Documented On 2 7:35AM ; [facility] Yes patient feels confident managing chr onic conditions 01/16/2021 Last Documented On 1 5:43PM ; [facility] Physical Exam Physical Exam not supported for this document type No Physical Exam Recorded Immunizations Includes: Immunizations in patient's chart Vaccine Dose # Date Site Reaction(s) Status Source Hep A, adult 1 12/28/2003 Complete (Report ed) Patient Last Documented On 1 11:57AM ; [facility] Hep A, adult 2 01/17/2005 Complete (Report ed) Patient Last Documented On 1 11:57AM ; [facility] Hep B, adolescent or pediatric 1 2001 Complete (Reported) Patient Last Documented On 1 11:57AM ; [facility] Hep B, adolescent or pediatric 2 02/02/2002 Complete (Reported) Patient Last Documented On 1 11:57AM ; [facility] HPV (Bivalent) 1 04/03/2016 Complete (Repo rted) Patient Last Documented On 1 11:58AM ; [facility] HPV4 (Gardasil) 1 06/01/2015 Complete (Rep orted) Patient Last Documented On 1 11:58AM ; [facility] HPV4 (Gardasil) 2 08/20/2015 Complete (Rep orted) Patient Last Documented On 1 11:58AM ; [facility] Influenza, High Dose, IM, PF 1 08/13/2020 Complete (Reported) Patient Last Documented On 1 11:57AM ; [facility] Meningococcal B Recombinant (Trumenba) 1 12/22/2018 Complete (Reported) Patient Last Documented On 1 12:00PM ; [facility] Meningococcal MCV4O (Menveo) 1 07/03/2013 Complete (Reported) Patient Last Documented On 1 11:59AM ; [facility] MMR 1 01/05/2003 Complete (Reported) P atient Last Documented On 1 11:59AM ; [facility] MMR 2 01/14/2006 Complete (Reported) P atient Last Documented On 1 11:59AM ; [facility] Tdap (Adacel) 1 12/22/2018 Complete (Repor debbie) Patient Last Documented On 1 11:57AM ; [facility] Varicella 1 01/05/2003 Complete (Reported) Patient Last Documented On 1 12:01PM ; [facility] Varicella 2 12/31/2006 Complete (Reported) Patient Last Documented On 1 12:01PM ; [facility] Allergies Includes: Active, inactive, and resolved Allergies No Known Allergies Encounters Includes: Encounters through 09/21/2025 Encounter Provider Location Date Check-In Time Check-Out Time Diagnosis Follow up Ritu Crow JEWEL LATHE OPERATOR [facility] at [facility] 60 08/16/20 22 10:37AM 11:25AM Arthralgia,Vit giron D Deficiency Acute / Sick Visit Ritu Crow JEWEL LATHE OPERATOR [facility] at [facility] 605 08/01/20 22 2:15PM 3:17PM Arthralgias Multiple Sites,Assessme nt of Tingling of the Limbs,Eye Disorders Vision New Patient Jesika German MD [facility] 605 01/17/20 21 11:30AM 12:09PM Michael Hoffman Examination
--- OUTSIDE RECORDS SUMMARY | 2025-09-21 17:18 | XMS_ITS | Encounter Summary ---
Author Organization [facility] Address [address] [place], [place] [id number] Phone Care Team Providers Care Manager Application Development Name Role Phone Pcp, Unknown Primary Care Provider Unavailabl e Azra Hawthorne Unavailable [phone] Reason for Referral * Physical Therapy (Routine) - Closed Specialty Diagnoses / Procedures Referred By Keith mcintyre Referred To Contact Physical Therapy Diagnoses Encounter for rehabilitation Azra Hawthorne PA [address] [place] [phone] Phone: tel: fax: [address] [address] Phone: tel: Referral ID Status Reason Start Date Expiration Date Visits Re quested Visits Authorized [id number] Closed 05/21/2024 10/20/2025 0 0 Encounter Details Date Type Department Care Team (Latest Contact Info) Description 05/21/2024 Transcribe Orders [facility] [address] [place] [address] Azra Hawthorne PA [address] [place] [phone] Encounter for rehabilitation (Primary Dx) Social History Tobacco Use Types Packs/Day Years [...] as of this encounter Plan of Treatment Scheduled Referrals Name Type Priority Associated Diagnoses Orde r Schedule Ambulatory referral to [facility] Physical Therapy Outpatient Referral Routine Encounter for rehabilitation Ordered: 05/21/2024 documented as of this encounter Visit Diagnoses Diagnosis Encounter for rehabilitation- Primary documented in this encounter Care Teams Manager Application Development Relationship Specialty Start Date End Date Pcp, Unknown PCP - General 06/27/23 Azra Hawthorne PA [address] [place] [address] Physician Shear Grinder Operator 12/28/24 documented as of this encounter Additional Source Comments The information contained in this document represents components of the legal health record. It is not the complete legal health record.[facility]
--- OUTSIDE RECORDS SUMMARY | 2025-09-21 17:18 | XMS_ITS | Clinical Summary ---
Author Organization [facility] Address [address] [place] [address] Phone Care Team Providers Care Daylight Driller Name Role Phone Monserrat BOWMAN, Jesika Vargas Primary Care Provider [phone] Jesika German MD Unavailable [phone] Problems Includes: Problems addressed during this encounter and other active Problems All Visits Onset Date Resolved Date Provider Condition S tatus Arthralgias Multiple Sites 08/02/2022 Ritu Crow APRN Active Last Documented On 08/02/2022 7:31AM ; [facility] Note: Unchanged Tingling of the Limbs 08/02/2022 Godfrey Crow APRN Active Last Documented On 08/02/2022 7:31AM ; [facility] Note: Unchanged Lactose Intolerance Unknown Jesika German MD Active Last Documented On 5:40PM ; [facility] Plan of Treatment Risk verses benefits of the steroids reviewed including but not limited to- can increase risk for cataracts, elevate serum sugar levels, can irritate and elevate acid in the stomach and cause ulcers, can be stimulating affecting sleep, can decrease bone strength worsening osteopenia/osteoporosis - Last Documented On 08/16/2022 1:21PM ; [facility] Advised to take Prilosec or pepcid to protect the stomach while taking prednisone or nsaids - Last Documented On 08/16/2022 1:21PM ; [facility] Encouraged taking vitamin D3, 2000 IU daily - Last Documented On 08/16/2022 1:21PM ; [facility] advised to sit ergonomically correct when he is on the computer and avoid laying on his left side or putting left arm under his head to sleep avoid repetitive motions with left arm - Last Documented On 08/16/2022 1:21PM ; [facility] Instructions to patient Return to the clinic if cond ition worsens or new symptoms arise Last Documented On 2 1:17PM ; [facility] Instructions Includes: Instructions from this encounter Instructions to patient Return to the clinic if cond ition worsens or new symptoms arise Last Documented On 2 1:17PM ; [facility] Medications Includes: Medications discussed during this encounter and other current Medications New / Renewed during this visit Ritu Crow APRN on 08/16/2022 methylPREDNISolone 4 MG Oral Tablet Therapy Pack Provider: Ritu Crow APRN 6 day supply: 1 tablet, 0 refills Diagnosis: Pain in unspecified joint as directed Pharmacy: [facility]/ [address] [place] [address], [id number] - Last Documented On 11:36AM By Ritu Crow APRN ; [facility] Medications Administered Includes: Administered Medications from this encounter No Administered Medications Recorded Vital Signs Includes: Vital Signs from this encounter Vital Name 08/16/2022 10:51A Blood Pressure Sitting (mmHg) 122/70 Pulse Rate-Sitting (bpm) 88 Weight (lb) 125 Oxygen Saturation (%) 98 Last Documented: On 08/16/2022 10:55A M ; [facility] Results Includes: Results discussed during this encounter CBC AND PLT [facility] Ordered by Ritu Crow APRN on Collected: 08/03/2022 Reported: 08/03/20 17:52 Last Documented On 2 2:19PM ; [facility] Reviewed by Ritu zimmerman APRN on 08/05/2022; All test results are final unless otherwise noted. WBC 4.6 10x3/ul (4.5-11.0) N (Normal) Last Documented On 10:12PM ; [facility] RBC 4.98 10X6/uL (4.50-5.90) N (Normal) Last Documented On 2 10:12PM ; [facility] HEMOGLOBIN 14.6 g/dL (14.0-17.5) N (Normal) Last Documented On 2 10:12PM ; [facility] HEMATOCRIT 42.3 % (40.0-52.0) N (Normal) Last Documented On 10:12PM ; [facility] MCV 84.9 fL (80.0-100.0) N (Normal) Last Documented On 10:12PM ; [facility] MCH 29.3 pg (25.0-32.0) N (Normal) Last Documented On 2 10:12PM ; [facility] MCHC 34.5 g/dL (31.0-37.0) N (Normal) Last Documented On 10:12PM ; [facility] RDW SD 40.9 fL (37.0-54.0) N (Normal) Last Documented On 10:12PM ; [facility] RDW CV 13.3 % (11.0-16.0) N (Normal) Last Documented On 2 10:12PM ; [facility] PLATELET COUNT 221 10x3/uL (150-400) N (Normal) Last Documented On 10:12PM ; [facility] MPV 11.3 fL (8.2-12.2) N (Normal) Last Documented On 10:12PM ; [facility] SEG 52 % (29-66) N (Normal) Last Documented On 10:12PM ; [facility] LYMPH 35 % (15-49) N (Normal) Last Documented On 10:12PM ; [facility] MONOS 11 % (2-14) N (Normal) Last Documented On 10:12PM ; [facility] EOSINS 1 % (0-5) N (Normal) Last Documented On 2 10:12PM ; [facility] BASOPHIL 1 % (0-2) N (Normal) Last Documented On 2 10:12PM ; [facility] NUCLEATED RBCS 0 /100WBC (0-1) N (Normal) Last Documented On 2 10:12PM ; [facility] META,MYELO,PRO 0 % (0-5) N (Normal) Last Documented On 2 10:12PM ; [facility] ABSOLUTE NEUT COUNT 2.39 10x3/uL (1.50-7.00) N (Normal) Last Documented On 2 10:12PM ; [facility] Note: CC'd Providers: Specimen Number: [id number] SED RATE [facility] Ordered by Ritu Crow CONSULTING PRACTICE MANAGER on Collected: 08/03/2022 Reported: 08/03/20 22 18:12 Last Documented On 2 2:19PM ; [facility] Reviewed by Ritu Mike in CONSULTING PRACTICE MANAGER on 08/05/2022; All test results are final unless otherwise noted. SED RATE <1 mm/hr (0-15) N (Normal) Last Documented On 2 10:12PM ; [facility] Note: CC'd Providers: Specimen Number: [id number] VITAMIN D,25 HYDROXY [facility] Ordered by Ritu Crow CONSULTING PRACTICE MANAGER on Collected: 08/03/2022 Reported: 08/03/20 22 18:19 Last Documented On 2 2:19PM ; [facility] Reviewed by Ritu Mike in CONSULTING PRACTICE MANAGER on 08/05/2022; All test results are final unless otherwise noted. VITAMIN D,25 HYDROXY 15.5 ng/mL (20-100) L (Low) Last Documented On 2 10:12PM ; [facility] Note: PEDIATRIC Vitamin D Status Range ng/mLDeficiency <15Insufficiency 15 - 19Sufficiency 20 - 100CC'd Providers: Specimen Number: [id number] COMP METABOLIC PANEL [facility] Ordered by Ritu Crow CONSULTING PRACTICE MANAGER on Collected: 08/03/2022 Reported: 08/03/20 22 18:21 Last Documented On 2:19PM ; [facility] Reviewed by Ritu Mike in CONSULTING PRACTICE MANAGER on 08/05/2022; All test results are final unless otherwise noted. ALB/GLOB RATIO 1.3 (1.0-2.2) N (Normal) Last Documented On 10:12PM ; [facility] Note: CC'd Providers: Specimen Number: [id number] GLUCOSE 78 mg/dL (70-100) N (Normal) Last Documented On 10:12PM ; [facility] SODIUM 137 mmol/L (132-144) N (Normal) Last Documented On 10:12PM ; [facility] POTASSIUM 4.4 mmol/L (3.5-5.1) N (Normal) Last Documented On 10:12PM ; [facility] CHLORIDE 103 mmol/L (98-110) N (Normal) Last Documented On 10:12PM ; [facility] CO2 28 mmol/L (21-32) N (Normal) Last Documented On 10:12PM ; [facility] BUN 13 mg/dL (6-20) N (Normal) Last Documented On 10:12PM ; [facility] CREATININE 0.85 mg/dL (0.70-1.30) N (Normal) Last Documented On 10:12PM ; [facility] GFR, >60 mL/mn (>60) N (Normal) Last Documented On 10:12PM ; [facility] Note: Note: The calculated GFR value ass umes an average adult body size with asurface area of 1.73 square meters. For unusually large or small patients, anadjustment should be made. GFR, AFR. AMER >60 mL/mn (>60) N (Normal) Last Documented On 10:12PM ; [facility] CALCIUM 9.6 mg/dL (8.3-9.9) N (Normal) Last Documented On 2 10:12PM ; [facility] TOTAL BILIRUBIN 1.9 mg/dL (0.2-1.3) H (High) Last Documented On 2 10:12PM ; [facility] ALK PHOS 84 U/L (26-162) N (Normal) Last Documented On 2 10:12PM ; [facility] AST/SGOT 17 U/L (15-37) N (Normal) Last Documented On 2 10:12PM ; [facility] ALT/SGPT 30 U/L (16-61) N (Normal) Last Documented On 2 10:12PM ; [facility] TOTAL PROTEIN 8.0 G/dL (6.4-8.3) N (Normal) Last Documented On 2 10:12PM ; [facility] ALBUMIN 4.5 G/dL (3.2-4.8) N (Normal) Last Documented On 2 10:12PM ; [facility] GLOBULIN 3.5 G/dL (2.0-4.2) N (Normal) Last Documented On 2 10:12PM ; [facility] C REACTIVE PROTEIN [facility] Ordered by Ritu Crow APRN on Collected: 08/03/2022 Reported: 08/03/20 22 18:21 Last Documented On 2 2:19PM ; [facility] Reviewed by Ritu zimmerman CONSULTING PRACTICE MANAGER on 08/05/2022; All test results are final unless otherwise noted. C REACTIVE PROTEIN <0.3 mg/dL (<0.3) N (Normal) Status: Correction Last Documented On 2 10:12PM ; [facility] Note: NOTE: This [...] for cardiac risk stratification.CC'd Providers: Specimen Number: [id number] LIPID PROF Jian [facility] Ordered by Ritu Crow CONSULTING PRACTICE MANAGER on Collected: 08/03/2022 Reported: 08/03/20 22 18:21 Last Documented On 2 2:19PM ; [facility] Reviewed by Ritu Mike in CONSULTING PRACTICE MANAGER on 08/05/2022; All test results are final unless otherwise noted. CHOLESTEROL 124 mg/dL (107-240) N (Normal) Last Documented On 2 10:12PM ; [facility] TRIGLYCERIDES 62 mg/dL (40-199) N (Normal) Last Documented On 2 10:12PM ; [facility] HDL CHOLESTEROL 46 mg/dL (35-67) N (Normal) Last Documented On 2 10:12PM ; [facility] TOTAL/HDL RATIO 2.7 N (Normal) Last Documented On 2 10:12PM ; [facility] LDL CHOLEST 66 mg/dL N (Normal) Last Documented On 2 10:12PM ; [facility] Note: ADULT .............OPTIMAL [...] Correction Last Documented On 2 10:12PM ; [facility] TOT:HDL CHD RISK 1.0 (Low) N (Normal) Status: Correction Last Documented On 2 10:12PM ; [facility] Note: The above TC:HDL CHD relative risk estimates are for people who also have lowcardio-CRP values, IE. <0.7 mg/L.CC'd Providers: Specimen Number: [id number] TSH [facility] Ordered by Ritu Crow CONSULTING PRACTICE MANAGER on Collected: 08/03/2022 Reported: 08/03/20 22 18:21 Last Documented On 2:19PM ; [facility] Reviewed by Ritu Mike in CONSULTING PRACTICE MANAGER on 08/05/2022; All test results are final unless otherwise noted. TSH 0.596 uIU/mL (0.463-3.980) N (Normal) Last Documented On 10:12PM ; [facility] Note: 'd Providers: Specimen Number: [id number] LDH [facility] Ordered by Ritu Crow APRN on Collected: 08/03/2022 Reported: 022 18:21 Last Documented On 2 2:19PM ; [facility] Reviewed by Ritu Mike in CONSULTING PRACTICE MANAGER on 08/05/2022; All test results are final unless otherwise noted. LDH 150 U/L (87-241) N (Normal) Last Documented On 10:12PM ; [facility] Note: CC'd Providers: Specimen Number: [id number] VITAMIN B12 [facility] Ordered by Ritu Crow APRN on Collected: 08/03/2022 Reported: 08/03/20 22 18:51 Last Documented On 2 2:19PM ; [facility] Reviewed by Ritu Mike in CONSULTING PRACTICE MANAGER on 08/05/2022; All test results are final unless otherwise noted. VITAMIN B12 508 pg/mL (193-986) N (Normal) Last Documented On 2 10:12PM ; [facility] Note: CC'd Providers: Specimen Number: [id number] FOLIC ACID [facility] Ordered by Ritu Crow CONSULTING PRACTICE MANAGER on Collected: 08/03/2022 Reported: 08/03/20 18:51 Last Documented On 2 2:19PM ; [facility] Reviewed by Ritu Mike in CONSULTING PRACTICE MANAGER on 08/05/2022; All test results are final unless otherwise noted. FOLIC ACID 22.9 ng/mL (3.1-17.5) H (High) Last Documented On 2 10:12PM ; [facility] Note: CC'd Providers: Specimen Number: [id number] HEP C AB [facility] Ordered by Ritu Crow CONSULTING PRACTICE MANAGER on Collected: 08/03/2022 Reported: 08/03/20 19:02 Last Documented On 2 2:19PM ; [facility] Reviewed by Ritu Mike in CONSULTING PRACTICE MANAGER on 08/05/2022; All test results are final unless otherwise noted. HEP C AB NONREACTIVE (NONREACTIVE) N (Normal) Last Documented On 2 10:12PM ; [facility] Note: CC'd Providers: Specimen Number: [id number] Social History Description Last Updated Occupation student at [employer], study ing computer science 01/16/2021 Last Documented On 2 10:51AM ; [facility] No tobacco use 01/16/2021 Last Documented On 2 10:51AM ; [facility] Not a social drinker 01/16/2021 Last Documented On 2 10:51AM ; [facility] Not currently 01/16/2021 Last Documented On 2 10:51AM ; [facility] Not using drugs 01/16/2021 Last Documented On 10:51AM ; [facility] Never a smoker 01/16/2021 Last Documented On 2 10:51AM ; [facility] Patient does not have living will 2020 Last Documented On 2 10:51AM ; [facility] Use of tobacco assessment performed 12/20 Last Documented On 2 10:51AM ; [facility] Smoking Status Unknown Procedures and Surgical History Includes: Procedures from this encounter Procedures Code Diagnosis Performing Provider Service L ocation Service Date return to the clinic if condition worsens or new symptoms arise Last Documented On 2 1:17PM ; [facility] Medical History Includes: Medical History addressed during this encounter Description Last Updated No physical trauma 08/16/2022 Last Documented On 2 1:21PM ; [facility] Compliant with medications 08/02/2022 Last Documented On 2 10:51AM ; [facility] No recent change in medical history 07/21 Last Documented On 2 10:51AM ; [facility] Yes patient feels confident managing chr onic conditions 01/16/2021 Last Documented On 2 10:51AM ; [facility] Physical Exam Includes: Physical Exam from this encounter Allergies Includes: Active Allergies No Known Allergies Encounters Encounter Provider Location Date Check-In Time Check-Out Time Diagnosis Follow up Ritu Crow APRN [facility] Primary Care at [facility] [address] [address] 2 10:37AM 11:25AM Arthralgia,Vit giron D Deficiency
--- OUTSIDE RECORDS SUMMARY | 2025-09-21 17:18 | XMS_ITS | Clinical Summary ---
Author Organization [facility] Address [address] [place] [address] Phone Care Team Providers Care Administrative Assistant Coordinator Name Role Phone Monserrat BOWMAN, Jesika Vargas Primary Care Provider [phone] Jesika German MD Unavailable [phone] Problems Includes: Problems addressed during this encounter and other active Problems Current Visit Onset Date Resolved Date Provider Conditio n Status Lactose Intolerance Unknown Jesika anton MD Active Last Documented On 5:40PM ; [facility] Past Visits Onset Date Resolved Date Provider Condition Status Arthralgias Multiple Sites 08/02/2022 Ritu Crow APRN Active Last Documented On 08/02/2022 7:31AM ; [facility] Note: Unchanged Tingling of the Limbs 08/02/2022 Godfrey Crow APRN Active Last Documented On 08/02/2022 7:31AM ; [facility] Note: Unchanged Plan of Treatment Monthly self testicular exam recommended. Pt given handout from [facility] on self testicular exam. - Last Documented On 01/16/2021 5:43PM ; [facility] U.S. Preventive Services Task Force recommendation for hepatitis C screening between the ages of 18-79 years old reviewed. - Last Documented On 01/16/2021 5:43PM ; [facility] Clinical staff counseled patient to adopt healthy behaviors as appropriate. - Last Documented On 01/16/2021 5:43PM ; [facility] Education and Decision Aids were provided during visit for: Clinical staff counseled pat ient to adopt healthy behaviors as appropriate Last Documented On 1 11:55AM ; [facility] Instructions Includes: Instructions from this encounter Education and Decision Aids were provided during visit for: Clinical staff counseled pat ient to adopt healthy behaviors as appropriate Last Documented On 1 11:55AM ; [facility] Medications Includes: Medications discussed during this encounter and other current Medications Past Medications on file methylPREDNISolone 4 MG Oral Tablet Therapy Pack 08/16/2022 - 08/22/2022 Provider: Ritu Crow APRN Diagnosis: Pain in unspecif ied joint as directed Last Documented On 2 11:36AM By Ritu Crow APRN ; [facility] Medications Administered Includes: Administered Medications from this encounter No Administered Medications Recorded Vital Signs Includes: Vital Signs from this encounter Vital Name 01/16/2021 11:54A Blood Pressure Sitting L 118/74 BP Cuff Size Regular Pulse Rate-Sitting (bpm) 113 Temp-Temporal 98.4 Height (in) 69 Weight (lb) 117 Body Mass Index (kg/m2) 17.3 BMI Percentile (percentile) 1 Body Surface Area (m2) 1.6 Last Documented: On 01/16/2021 11:54A M ; [facility] 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 No tobacco use 01/16/2021 Last Documented On 1 5:43PM ; [facility] Not a social drinker 01/16/2021 Last Documented On 1 5:43PM ; [facility] Not currently 01/16/2021 Last Documented On 1 5:43PM ; [facility] Not using drugs 01/16/2021 Last Documented On 1 5:43PM ; [facility] Never a smoker 01/16/2021 Last Documented On 5:43PM ; [facility] Patient does not have living will 2020 Last Documented On 1 5:43PM ; [facility] Use of tobacco assessment performed 12/20 Last Documented On 1 5:43PM ; [facility] Smoking Status Unknown Procedures and Surgical History Includes: Procedures from this encounter Procedures Code Diagnosis Performing Provider Service L ocation Service Date history of Tdap vaccine 51622 Last Documented On 1 11:56AM ; [facility] history of influenza virus vaccine Last Documented On 1 11:56AM ; [facility] Clinical summary provided to patient Last Documented On 1 11:55AM ; [facility] Medical History Includes: Medical History addressed during this encounter Description Last Updated Yes patient feels confident managing chr onic conditions 01/16/2021 Last Documented On 1 5:43PM ; [facility] Physical Exam Includes: Physical Exam from this encounter Immunizations Includes: Immunizations addressed during this encounter Vaccine Dose # Date Site Reaction(s) Status Source Hep A, adult 1 12/28/2003 Complete (Report ed) Patient Last Documented On 1 11:57AM ; [facility] Hep A, adult 2 01/17/2005 Complete (Report ed) Patient Last Documented On 1 11:57AM ; [facility] Hep B, adolescent or pediatric 1 2001 Complete (Reported) Patient Last Documented On 1 11:57AM ; [facility] Hep B, adolescent or pediatric 2 02/02/2002 Complete (Reported) Patient Last Documented On 1 11:57AM ; [facility] HPV (Bivalent) 1 04/03/2016 Complete (Repo rted) Patient Last Documented On 1 11:58AM ; [facility] [facility] HPV4 (Gardasil) 1 06/01/2015 Complete (Rep orted) Patient Last Documented On 1 11:58AM ; [facility] HPV4 (Gardasil) 2 08/20/2015 Complete (Rep orted) Patient Last Documented On 1 11:58AM ; [facility] Influenza, High Dose, IM, PF 1 08/13/2020 Complete (Reported) Patient Last Documented On 1 11:57AM ; [facility] Meningococcal B Recombinant (Trumenba) 1 12/22/2018 Complete (Reported) Patient Last Documented On 1 12:00PM ; [facility] Meningococcal MCV4O (Menveo) 1 07/03/2013 Complete (Reported) Patient Last Documented On 1 11:59AM ; [facility] MMR 1 01/05/2003 Complete (Reported) P atient Last Documented On 1 11:59AM ; [facility] MMR 2 01/14/2006 Complete (Reported) P atient Last Documented On 1 11:59AM ; [facility] Tdap (Adacel) 1 12/22/2018 Complete (Repor debbie) Patient Last Documented On 1 11:57AM ; [facility] Varicella 1 01/05/2003 Complete (Reported) Patient Last Documented On 1 12:01PM ; [facility] Varicella 2 12/31/2006 Complete (Reported) Patient Last Documented On 1 12:01PM ; [facility] Allergies Includes: Active Allergies No Known Allergies Encounters Encounter Provider Location Date Check-In Time Check-Out Time Diagnosis New Patient Jesika German MD [facility] Primary Care at [facility] 01/17/20 21 11:30AM 12:09PM Nuno Hoffman Examination
--- OUTSIDE RECORDS SUMMARY | 2025-09-21 17:18 | XMS_ITS | Clinical Summary ---
Author Organization [facility] Address [address] [place], [place] [id number] Phone Care Team Providers Care Deployment Technician Name Role Phone Pcp, Unknown Primary Care Provider Azra Ibanez Unavailable [phone] Allergies No known active allergies Medications No known medications Active Problems No known active problems Immunizations Immunization Administration Dates Next Due Rabies Fibroblast Culture 07/12/2023,07/05/2023, 07/01/2023,06/27/2023 Rabies Immune Globulin 06/27/2023 Social History Tobacco Use Types Packs/Day Years [...] on file Sexual Orientation Not on file Last Filed Vital Signs Vital Sign Reading Time Taken Comments Blood Pressure 108/74 07/01/2023 3:14 PM EDT Pulse 102 07/01/2023 3:14 PM EDT Temperature 36.1 C (97 F) 06/27/2023 8:57 PM EDT Respiratory Rate 16 07/01/2023 3:14 PM EDT Oxygen Saturation 98% 07/01/2023 3:14 PM EDT Inhaled Oxygen Concentration - - Weight 56.2 kg (124 lb) 07/01/2023 3:14 PM EDT Height 175.3 cm (5' 9 ) 07/01/2023 3:14 PM EDT Body Mass Index 18.31 07/01/2023 3:14 PM EDT Plan of Treatment Health Maintenance Due Date Last Done Comments Adult Td,Tdap Booster 2001 DEPRESSION SCREENING 2013 SMOKING Hx and SMOKELESS TOB ACCO SCREENING 2014 HPV VACCINES (1 - Male 3-dos e series) 2016 MENINGOCOCCAL VACCINES (B) ( 1 of 2 - Standard) 2017 HEPATITIS C SCREENING 12/27/2019 HIV ONE-TIME SCREENING (18-6 5 YEARS) 12/27/2019 INFLUENZA VACCINE (#1) 2025 COVID-19 VACCINE (1 - 2024-2 6 season) 2025 HEPATITIS A VACCINES Aged Out No long er eligible based on patient's age to complete this topic HIB VACCINES Aged Out No longer eligi ble based on patient's age to complete this topic MENINGOCOCCAL VACCINES (ACWY) Aged Out No longer eligible based on patient's age to complete this topic PNEUMOCOCCAL VACCINES (0-49 years) Aged Out No longer eligible based on patient's age to complete this topic Medical Devices Not on file Insurance [employer] HMO POS EPO [facility] EPO [facility] POS EPO [employer] POS EPO [address] [place], [place] [address] POS EPO [employer] [facility] POS EPO [employer] O POS EPO Care Teams Deployment Technician Relationship Specialty Start Date End Date Pcp, Unknown PCP - General 06/27/23 Azra Hawthorne PA [address] [place] [address] Physician Library Media Technician 12/28/24 Additional Source Comments The information contained in this document represents components of the legal health record. It is not the complete legal health record.[facility]
--- OUTSIDE RECORDS SUMMARY | 2025-09-21 17:18 | XMS_ITS ---
Care Plan - [facility] Created on: September 21, 2025 Flori Keenis Alvin : 2000 Sex: Male Author Organization [facility] Address [address] [place] [address] Phone Care Team Providers Care Ladies Suit Operator Name Role Phone Jesika German MD Unavailable [phone] Jesika German MD Primary Care Provider [phone]
[2025-09-21 18:22] VITALS: BP 130/83; PULSE 101; RESP 16; TEMP 36.3; O2SAT 99
[2025-09-21 18:24] VITALS: BMI 19.2
--- NOTE | 2025-09-21 18:49 | PC.ADMIT ---
Juan Carlos is a 24 y/o male that was admitted to at? 1628 from [facility] on CV for treatment of Thought d/o .? Pt reported ?I have mood swings I am so overly happy then the next minute I hate my life and I just go into a spiral. I feel like I get impulsive. And it just randomly happens to me.? Pt said he gets intrusive thoughts of SI frequently but has never acted on these thoughts.? Pt reported? A&Ox4.? Mood is anxious, congruent with affect.? Pt denied AVH. Pt was unable to know if he has anxiety or depression.? Thought Process linear.? Pt stated ?I have thoughts of wanting to , they come and they go.? No appetite disturbances. Vegetarian.? Sleep- difficult time falling asleep or waking up.? Pt had good focus and eye contact.? Pts first IPLOC.? Tox Screen - negative , pt denied substance, etoh or nicotine use.? Not on any medications. Used ritalin for ADHD but stopped months ago r/t worsening sleep difficulty.? Medical Issues - n/a Physical complaint- none Safety Checks - 15 mins Skin check unremarkable.? Pt would like the flu shot.? Pt reported undiagnosed OCD as a child, repetitive actions have stopped. Pt reported ?My mom didn?t treat me well as a kid. I have PTSD. She used to call me horrible things.? Pt stated he has struggled w/ mental health all his life but has never sought treatment. ?? Open to starting medications and treatments.
[2025-09-21 20:00] VITALS: BP 121/60; PULSE 114; RESP 16; TEMP 36.9; O2SAT 98
[2025-09-21] MEDS: Flu Vacc TS2025-26(6mo up)/PF 0.5 ML SYRINGE IM (20:48)
[2025-09-22 08:00] VITALS: BP 97/61; PULSE 86; RESP 16; TEMP 36.8; O2SAT 97
[2025-09-22 08:23] LABS: Cholesterol 154 mg/dL (<200); HDL Cholesterol 43 mg/dL (>40); Triglycerides 46 mg/dL (<150)
--- NOTE | 2025-09-22 08:43 | P.CONHOSP_ITS ---
History of Present Illness Data of Consult Service Date: 09/22/25 Primary Care Provider: None Physician HPI Reason for consult: Medical H&P 24-year-old male with ADHD and also suspected of having PTSD and OCD as a child, presented to the emergency department at [facility] for suicidal ideation. In the ED patient's metabolic panel was within normal limits, no evidence of renal or liver dysfunction, no leukocytosis or anemia. Negative EtOH, negative tox screen. On exam he has no medical concerns. Denies any past medical or surgical history. His vitals are stable. Review of Systems Review of Systems: Denies any shortness of breath, chest pain, headaches, dysuria, abdominal pain or discomfort, nausea, vomiting or diarrhea. Denies fever or chills. PMFSH Medical History Dysuria Social History (Updated 04/19/24 @ 21:51 by Meche Iqbal DO) Household Members: Family Housing: House Do you presently have visiting nurse or other home services: No Patient Tobacco Use Status: Never used Tobacco Currently Displaying Signs/Symptoms of Drug Intoxication Withdrawal: No Have you been hit, kicked, punched, or otherwise hurt by someone within the past year? If so, by whom?: No Do you feel safe in your current relationship?: No Current Relationship Is there a partner from a previous relationship who is making you feel unsafe now?: No Are you made to feel afraid or neglected: No Advance Directives: No Advance Directives Information Provided: No Do you have thoughts of harming others: None Do you have a plan to hurt others: No Plan Recently lost weight without trying: No How much weight loss: Not applicable Eating poorly because of decreased appetite: No Nutrition screen score: 0 Nutrition Risks: No Nutritional Risk Poor oral hygiene: No service: No Sexual orientation: Don't Know Meds Allergies Allergy/AdvReac Type Severity Reaction Status Date / Time peanut Allergy Intermediate Shortness Verified 04/19/24 17:44 of Breath Active Medications: Current Medications Acetaminophen (Acetaminophen 325 Mg Tablet) 650 mg PO Q6H PRN PRN Reason: Headache/Pain, Scale 1-10 Al Hydroxide/Mg Hydroxide (Magnesium Hydrox/Alum Hydrox 30 Ml Oral.Susp) 30 ml PO Q6H PRN PRN Reason: Heartburn/Nausea Hydroxyzine HCl (Hydroxyzine Hcl 25 Mg Tablet) 25 mg PO Q6H PRN PRN Reason: mild anxiety Magnesium Hydroxide (Milk Of Magnesia 30 Ml Oral.Susp) 30 ml PO DAILY PRN PRN Reason: Constipation Nicotine (Nicotine 21 Mg Patch.Td24) 21 mg TRANSDERMA DAILY PRN PRN Reason: nicotine cravings Nicotine Polacrilex (Nicotine Polacrilex 2 Mg Gum) 4 mg BUCCAL Q2H PRN PRN Reason: Nicotine Cravings Olanzapine (Olanzapine 5 Mg Tablet) 5 mg PO Q6H PRN PRN Reason: agitation Trazodone HCl (Trazodone Hcl 50 Mg Tablet) 50 mg PO BEDTIME MRX1 PRN PRN Reason: Insomnia Home Medications ?Medication ?Instructions ?Recorded ?Confirmed ?Last Taken ?Type No Known Home Meds 09/21/25 09/21/25 Un known History Physical Exam Vital Signs and Narrative: Vital Signs: Last Vital Signs Temp 98.2 F 09/22/25 08:00 Pulse 86 09/22/25 08:00 Resp 16 09/22/25 08:00 BP 97/61 09/22/25 08:00 Pulse Ox 97 09/22/25 08:00 O2 Del Method Room Air 09/22/25 08:00 BMI result Body Mass Index 19.2 Denies any shortness of breath, chest pain, palpitations, dizziness, lightheadedness, headaches, dysuria, abdominal pain or discomfort, nausea, vomiting or diarrhea. Denies chills, body aches, muscle aches, fatigue or weight loss. Results Labs Labs: Laboratory Results - last 24 hr 09/22/25 07:57 Estimat Average Glucose 100 Hemoglobin A1c % 5.1 Triglycerides 46 Cholesterol 154 LDL Cholesterol, Calc 102 H HDL Cholesterol 43 Assessment and Plan (1) ADHD: Status: Acute Plan 24-year-old male with past medical history below presented to the emergency room with suicidal ideation. Now admitted for inpatient psychiatric stabilization. ADHD/SI/possible OCD and PTSD Treatment per psychiatric team Thank you for allowing me to participate in the care of this patient. Will follow with you, please notify medical provider with any changes in condition or concerns.
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
[2025-09-22 20:00] VITALS: BP 117/79; PULSE 100; RESP 15; TEMP 36.6; O2SAT 100
[2025-09-23 07:50] VITALS: BP 101/57; PULSE 79; RESP 16; TEMP 36.5; O2SAT 97
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
[2025-09-23 20:00] VITALS: BP 101/57; PULSE 79; RESP 16; TEMP 36.5; O2SAT 97
[2025-09-24 07:50] VITALS: BP 119/63; PULSE 92; RESP 20; TEMP 36.9; O2SAT 99
[2025-09-24 19:07] VITALS: BP 134/71; PULSE 99; RESP 16; TEMP 36.6; O2SAT 100
--- NOTE | 2025-09-24 21:09 | P.PNPSI_ITS ---
Subjective Subjective Date of Service: 09/24/25 Reason For Visit: F33.2 MDD Subjective Notes: Conditional Voluntary Interim History: Chart reviewed, case discussed w/ team Pt reports feeling much better since his anxiety and sleep have significantly improved w/ the risperidone. He had a brief episode of worrying about his breathing but was able to fall asleep after a few minutes rather than obsess over it for an hour like he did in the past. He realized that he was able to get through a conversation w/ a peer today (after taking the Ritalin) without worrying the whole time about how he was presenting during the conversation. Discussed how ADHD contributes to the social anxiety, as he has difficulty focusing on what people say when they speak to him directly. He had initially avoided groups due to his social anxiety but attended multiple groups today and was able to participate. T/W discussed option of PHP after d/c but he wants to return to work FT after he leaves here. He had only been able to tolerate working 20 hrs prior to admission due to poor focus and hyperarousal sx but feels like he can work 40 hrs now. He looks forward to seeing an individual therapist, which SW referred him to. He has been able to focus much better since starting the 5 mg ritalin. He received his first dose ~4 pm yesterday and he was able to focus on calculus problems that he asked the staff to print out. He dneies any difficulty falling asleep . Had mild tremors ~2 hrs after taking it, which subsided. He's looking forward to the future again and has been making plans for the video game that he lost interest in a year ago. He denies SI. Denies med SE Denies significant depression Intrusive thoughts significantly decreased in intensity/frequency Medication Compliance: Yes Side effects from medications: No Attending Groups: Intermittent Review of Systems Acute medical concerns: No Mental Status Exam Mental Status Exam Narrative: Appearance: Casually dressed. Grooming/hygiene wnl. Good eye contact. Attitude:Cooperative. Showed t/w the calculus problems he's been working on and drawings of his video game ideas. Speech: Fluent and wnl in regard to volume, tone, prosody Motor activity: Calm and without any tics, tremors or dyskinesias. Steady gait Mood: better Affect: appropriate, reactive, bright Thought process: Goal directed, less circumstantial, rarely loses train of thought Thought content: Denies SI. Does not report violent ideation. Looks forward to the future Perception: Does not appear to respond to internal stimuli Alert/oriented in all spheres Cognition: Grossly intact Insight: intact Judgment: intact Diagnostics Vital Signs (24Hr): Vital Signs - 24 hr 09/24/25 07:50 Temperature 98.5 F Pulse Rate 92 Respiratory Rate 20 Blood Pressure 119/63 Pulse Oximetry 99 Oxygen Delivery Method Room Air BMI result Body Mass Index 19.2 Medications Medications Current Medications Acetaminophen (Acetaminophen 325 Mg Tablet) 650 mg PO Q6H PRN PRN Reason: Headache/Pain, Scale 1-10 Al Hydroxide/Mg Hydroxide (Magnesium Hydrox/Alum Hydrox 30 Ml Oral.Susp) 30 ml PO Q6H PRN PRN Reason: Heartburn/Nausea Hydroxyzine HCl (Hydroxyzine Hcl 25 Mg Tablet) 25 mg PO Q6H PRN PRN Reason: mild anxiety Last Admin: 09/22/25 09:03 Dose: 25 mg Magnesium Hydroxide (Milk Of Magnesia 30 Ml Oral.Susp) 30 ml PO DAILY PRN PRN Reason: Constipation Methylphenidate HCl (Methylphenidate Hcl 5 Mg Tablet) 5 mg PO DAILY [facility] Last Admin: 09/24/25 08:32 Dose: 5 mg Nicotine (Nicotine 21 Mg Patch.Td24) 21 mg TRANSDERMA DAILY PRN PRN Reason: nicotine cravings Nicotine Polacrilex (Nicotine Polacrilex 2 Mg Gum) 4 mg BUCCAL Q2H PRN PRN Reason: Nicotine Cravings Risperidone (Risperidone 0.25 Mg Tablet) 0.25 mg PO TID PRN PRN Reason: agitation and/or severe anxiety Risperidone (Risperidone 0.25 Mg Tablet) 0.75 mg PO BEDTIME [facility] Last Admin: 09/23/25 21:29 Dose: 0.75 mg Sertraline HCl (Sertraline Hcl 25 Mg Tablet) 25 mg PO DAILY [facility] Last Admin: 09/24/25 08:32 Dose: 25 mg Trazodone HCl (Trazodone Hcl 50 Mg Tablet) 50 mg PO BEDTIME MRX1 PRN PRN Reason: Insomnia Allergies Allergies Allergy/AdvReac Type Severity Reaction Status Date / Time peanut Allergy Intermediate Shortness Verified 04/19/24 17:44 of Breath Assessment & Plan Assessment & Plan (1) Severe major depression without psychotic features: Status: Acute Code(s): F32.2 - Major depressive disorder, single episode, severe without psychotic features (2) PTSD (post-traumatic stress disorder): Status: Acute Code(s): F43.10 - Post-traumatic stress disorder, unspecified (3) OCD (obsessive compulsive disorder): Status: Acute Code(s): F42.9 - Obsessive-compulsive disorder, unspecified (4) ADHD (attention deficit hyperactivity disorder), combined type: Status: Acute Code(s): F90.2 - Attention-deficit hyperactivity disorder, combined type Plan Mr. Rangel is a 24 yo SWM with h/o ADHD, suspected OCD & PTSD, anxiety and depression who presented to the [facility] ED due to SI. He was transferred to [facility] for safety and stabilization. Pt meets criteria for OCD, PTSD, ADHD combined type, and MDD. He has good insight and feels like the PTSD sx have significantly interefered w/ his overall functioning, particularly in academics. Plan: Admitted to [facility] for safety and stabilization CV 15 min safety checks CBC, BMP, tox screen and EKG reviewed from [facility] Ordered A1c and lipid panel Start sertraline 25 mg tomorrow for tx of OCD, MDD Start risperidone .5 mg qhs + .25 mg tid prn for off-label tx of hyper-arousal sx, obsessive/racing thoughts Will likely trial a stimulant after assessing response to the risperidone PRN hydroxyzine for anxiety and trazodone for insomnia 09/23: Slept well, decreased intrusive thoughts after taking first dose of risperidone .5 mg last night. denies SI. denies med SE. Pt agreeable w/ plan to start methylphenidate IR 5 mg tomorrow am for tx of ADHD. -Previously tried Adderall in college- felt too jittery. Methylphenidate ER- caused insomnia If pt can't tolerate the stimulants, will trial guanfacine 09/24: Mood/anxiety have significantly improved. Risperidone increased to .75 mg last night and he is tolerating it well. Will titrate MPH IR to 5 mg bid tomorrow and can switch to MPH ER 18 mg on Saturday if he tolerates the 10 mg tomorrow. He thinks he had been on Concerta 36 mg in the past, which caused insomnia and didn't help since he was so stressed and sleep deprived at the time. Discussed d/c planning for early next wk and pt felt comfortable w/ that plan Reason for continued inpatient stay Substantial Risk for: med/psych decompensation Time Spent With Patient Time: Total time managing care of this patient today ____ minutes.
[2025-09-25 08:26] VITALS: BP 123/55; PULSE 95; RESP 16; TEMP 36.8; O2SAT 97
--- NOTE | 2025-09-25 09:19 | P.PNPSI_ITS ---
Subjective Subjective Date of Service: 09/25/25 Reason For Visit: F33.2 MDD Subjective Notes: Conditional Voluntary Medical Problems Affecting Mental Status: No Interim History: met with patient. Discussed with Nursing. Has been in the milieu interacting with peers appropriately. Sleeping well. Less obsessive thinking. Reports mood is significantly better. Much less anxious. Not depressed. Enjoying playing games with peers. Sleep has been good. Noticed a significant benefit with focus and concentration with Ritalin and excited about his ability to do academic work including calculus and sharing this with his family in appropriate manner i.e. not elated or manic. Looking forward to ongoing stability and discharge planning with treatment team after the weekend. Medication Compliance: Yes Side effects from medications: No Attending Groups: Yes Review of Systems Review of Systems nothing of note Mental Status Exam Mental Status Exam Narrative: Appearance: Casually dressed. Grooming/hygiene wnl. Good eye contact. Attitude:Cooperative. Showed t/w the calculus problems he's been working on and drawings of his video game ideas. Speech: Fluent and wnl in regard to volume, tone, prosody Motor activity: Calm and without any tics, tremors or dyskinesias. Steady gait Mood: Good Affect: appropriate, reactive, bright Thought process: Goal directed, less circumstantial, rarely loses train of thought Thought content: Denies SI. Does not report violent ideation. Looks forward to the future Perception: denied Alert/oriented in all spheres Cognition: Grossly intact Insight: intact Judgment: intact Diagnostics Vital Signs (24Hr): Vital Signs - 24 hr 09/24/25 19:07 09/25/25 08:26 Temperature 98 F 98.3 F Pulse Rate 99 95 Respiratory Rate 16 16 Blood Pressure 134/71 123/55 L Pulse Oximetry 100 97 Oxygen Delivery Method Room Air Room Air BMI result Body Mass Index 19.2 Medications Medications Current Medications Acetaminophen (Acetaminophen 325 Mg Tablet) 650 mg PO Q6H PRN PRN Reason: Headache/Pain, Scale 1-10 Al Hydroxide/Mg Hydroxide (Magnesium Hydrox/Alum Hydrox 30 Ml Oral.Susp) 30 ml PO Q6H PRN PRN Reason: Heartburn/Nausea Hydroxyzine HCl (Hydroxyzine Hcl 25 Mg Tablet) 25 mg PO Q6H PRN PRN Reason: mild anxiety Last Admin: 09/22/25 09:03 Dose: 25 mg Magnesium Hydroxide (Milk Of Magnesia 30 Ml Oral.Susp) 30 ml PO DAILY PRN PRN Reason: Constipation Methylphenidate HCl (Methylphenidate Hcl 5 Mg Tablet) 5 mg PO BID@0830,1330 [facility] Nicotine (Nicotine 21 Mg Patch.Td24) 21 mg TRANSDERMA DAILY PRN PRN Reason: nicotine cravings Nicotine Polacrilex (Nicotine Polacrilex 2 Mg Gum) 4 mg BUCCAL Q2H PRN PRN Reason: Nicotine Cravings Risperidone (Risperidone 0.25 Mg Tablet) 0.25 mg PO TID PRN PRN Reason: agitation and/or severe anxiety Last Admin: 09/24/25 21:40 Dose: 0.25 mg Risperidone (Risperidone 0.25 Mg Tablet) 0.75 mg PO BEDTIME [facility] Last Admin: 09/24/25 21:40 Dose: 0.75 mg Sertraline HCl (Sertraline Hcl 25 Mg Tablet) 25 mg PO DAILY [facility] Last Admin: 09/25/25 08:47 Dose: 25 mg Trazodone HCl (Trazodone Hcl 50 Mg Tablet) 50 mg PO BEDTIME MRX1 PRN PRN Reason: Insomnia Allergies Allergies Allergy/AdvReac Type Severity Reaction Status Date / Time peanut Allergy Intermediate Shortness Verified 04/19/24 17:44 of Breath Assessment & Plan Assessment & Plan (1) Severe major depression without psychotic features: Status: Acute Code(s): F32.2 - Major depressive disorder, single episode, severe without psychotic fea tures (2) PTSD (post-traumatic stress disorder): Status: Acute Code(s): F43.10 - Post-traumatic stress disorder, unspecified (3) OCD (obsessive compulsive disorder): Status: Acute Code(s): F42.9 - Obsessive-compulsive disorder, unspecified (4) ADHD (attention deficit hyperactivity disorder), combined type: Status: Acute Code(s): F90.2 - Attention-deficit hyperactivity disorder, combined type Plan Mr. Rangle is a 24 yo SWM with h/o ADHD, suspected OCD & PTSD, anxiety and depression who presented to the [facility] ED due to SI. He was transferred to [facility] for safety and stabilization. Pt meets criteria for OCD, PTSD, ADHD combined type, and MDD. He has good insight and feels like the PTSD sx have significantly interefered w/ his overall functioning, particularly in academics. Plan: Admitted to [facility] for safety and stabilization CV 15 min safety checks CBC, BMP, tox screen and EKG reviewed from [facility] Ordered A1c and lipid panel Start sertraline 25 mg tomorrow for tx of OCD, MDD Start risperidone .5 mg qhs + .25 mg tid prn for off-label tx of hyper-arousal sx, obsessive/racing thoughts Will likely trial a stimulant after assessing response to the risperidone PRN hydroxyzine for anxiety and trazodone for insomnia 09/23: Slept well, decreased intrusive thoughts after taking first dose of risperidone .5 mg last night. denies SI. denies med SE. Pt agreeable w/ plan to start methylphenidate IR 5 mg tomorrow am for tx of ADHD. -Previously tried Adderall in college- felt too jittery. Methylphenidate ER- caused insomnia If pt can't tolerate the stimulants, will trial guanfacine 09/24: Mood/anxiety have significantly improved. Risperidone increased to .75 mg last night and he is tolerating it well. Will titrate MPH IR to 5 mg bid tomorrow and can switch to MPH ER 18 mg on Saturday if he tolerates the 10 mg tomorrow. He thinks he had been on Concerta 36 mg in the past, which caused insomnia and didn't help since he was so stressed and sleep deprived at the time. 09/25/2025: Responding well to current regimen. No changes- will change from MPH IR to MPH ER 18 mg on Saturday Reason for continued inpatient stay Substantial Risk for: harm to self and rapid decompensation Time Spent With Patient Time: Total time managing care of this patient today ____ minutes.
[2025-09-25 19:49] VITALS: BP 123/74; PULSE 86; RESP 18; TEMP 37.2; O2SAT 99
--- NOTE | 2025-09-26 07:51 | HO.PSYCHPN ---
Subjective Subjective Date of Service: 09/26/25 Reason For Visit: F33.2 MDD Subjective Notes: Conditional Voluntary Interim History: met with patient. Discussed with Nursing. Overall continues to do well. Benefitting from current medication regimen. Focus, anxiety under good control. Sleep energy and appetite also good. No OCD. Feeling very supported and hospital setting. Looking forward to discharge planning also with family. Getting on well in the milieu, attending groups and interacting with peers. No med concerns. Review of Systems Review of Systems nothing of note Mental Status Exam Mental Status Exam Narrative: Appearance: Casually dressed. Grooming/hygiene wnl. Good eye contact. Attitude:Cooperative. Showed t/w the calculus problems he's been working on and drawings of his video game ideas. Speech: Fluent and wnl in regard to volume, tone, prosody Motor activity: Calm and without any tics, tremors or dyskinesias. Steady gait Mood: Very good Affect: appropriate, reactive, bright Thought process: Goal directed Thought content: Denies SI. Does not report violent ideation. Looks forward to the future Perception: denied Alert/oriented in all spheres Cognition: Grossly intact Insight: intact Judgment: intact Diagnostics Vital Signs (24Hr): Vital Signs - 24 hr 09/25/25 08:26 09/25/25 19:49 Temperature 98.3 F 99 F Pulse Rate 95 86 Respiratory Rate 16 18 Blood Pressure 123/55 L 123/74 Pulse Oximetry 97 99 Oxygen Delivery Method Room Air Room Air BMI result Body Mass Index 19.2 Medications Medications Current Medications Acetaminophen (Acetaminophen 325 Mg Tablet) 650 mg PO Q6H PRN PRN Reason: Headache/Pain, Scale 1-10 Al Hydroxide/Mg Hydroxide (Magnesium Hydrox/Alum Hydrox 30 Ml Oral.Susp) 30 ml PO Q6H PRN PRN Reason: Heartburn/Nausea Hydroxyzine HCl (Hydroxyzine Hcl 25 Mg Tablet) 25 mg PO Q6H PRN PRN Reason: mild anxiety Last Admin: 09/22/25 09:03 Dose: 25 mg Magnesium Hydroxide (Milk Of Magnesia 30 Ml Oral.Susp) 30 ml PO DAILY PRN PRN Reason: Constipation Methylphenidate HCl (Methylphenidate Hcl 5 Mg Tablet) 5 mg PO BID@0830,1330 ELIZABETH Last Admin: 09/25/25 13:41 Dose: 5 mg Nicotine (Nicotine 21 Mg Patch.Td24) 21 mg TRANSDERMA DAILY PRN PRN Reason: nicotine cravings Nicotine Polacrilex (Nicotine Polacrilex 2 Mg Gum) 4 mg BUCCAL Q2H PRN PRN Reason: Nicotine Cravings Risperidone (Risperidone 0.25 Mg Tablet) 0.25 mg PO TID PRN PRN Reason: agitation and/or severe anxiety Last Admin: 09/25/25 22:33 Dose: 0.25 mg Risperidone (Risperidone 0.25 Mg Tablet) 0.75 mg PO BEDTIME ELIZABETH Last Admin: 09/25/25 22:32 Dose: 0.75 mg Sertraline HCl (Sertraline Hcl 25 Mg Tablet) 25 mg PO DAILY ELIZABETH Last Admin: 09/25/25 08:47 Dose: 25 mg Trazodone HCl (Trazodone Hcl 50 Mg Tablet) 50 mg PO BEDTIME MRX1 PRN PRN Reason: Insomnia Allergies Allergies Allergy/AdvReac Type Severity Reaction Status Date / Time peanut Allergy Intermediate Shortness Verified 04/19/24 17:44 of Breath Assessment & Plan Assessment & Plan (1) Severe major depression without psychotic features: Status: Acute Code(s): F32.2 - Major depressive disorder, single episode, severe without psychotic features (2) PTSD (post-traumatic stress disorder): Status: Acute Code(s): F43.10 - Post-traumatic stress disorder, unspecified (3) OCD (obsessive compulsive disorder): Status: Acute Code(s): F42.9 - Obsessive-compulsive disorder, unspecified (4) ADHD (attention deficit hyperactivity disorder), combined type: Status: Acute Code(s): F90.2 - Attention-deficit hyperactivity disorder, combined type Plan Mr. Rangel is a 24 yo SWM with h/o ADHD, suspected OCD & PTSD, anxiety and depression who presented to the [facility] ED due to SI. He was transferred to [facility] for safety and stabilization. Pt meets criteria for OCD, PTSD, ADHD combined type, and MDD. He has good insight and feels like the PTSD sx have significantly interefered w/ his overall functioning, particularly in academics. Plan: Admitted to [facility] for safety and stabilization CV 15 min safety checks CBC, BMP, tox screen and EKG reviewed from [facility] Ordered A1c and lipid panel Start sertraline 25 mg tomorrow for tx of OCD, MDD Start risperidone .5 mg qhs + .25 mg tid prn for off-label tx of hyper-arousal sx, obsessive/racing thoughts Will likely trial a stimulant after assessing response to the risperidone PRN hydroxyzine for anxiety and trazodone for insomnia 09/23: Slept well, decreased intrusive thoughts after taking first dose of risperidone .5 mg last night. denies SI. denies med SE. Pt agreeable w/ plan to start methylphenidate IR 5 mg tomorrow am for tx of ADHD. -Previously tried Adderall in college- felt too jittery. Methylphenidate ER- caused insomnia If pt can't tolerate the stimulants, will trial guanfacine 09/24: Mood/anxiety have significantly improved. Risperidone increased to .75 mg last night and he is tolerating it well. Will titrate MPH IR to 5 mg bid tomorrow and can switch to MPH ER 18 mg on Saturday if he tolerates the 10 mg tomorrow. He thinks he had been on Concerta 36 mg in the past, which caused insomnia and didn't help since he was so stressed and sleep deprived at the time. 09/25/2025: Responding well to current regimen. No changes- will change from MPH IR to [facility]PH ER 18 mg on Saturday09/26/25: methylphenidate long-acting and Concerta did not appear to be on hospital formulary therefore unable to order long-acting methylphenidate preparation, therefore continue Ritalin immediate release 5 mg twice daily Reason for continued inpatient stay Substantial Risk for: rapid decompensation Time Spent With Patient Time: Total time managing care of this patient today ____ minutes.
[2025-09-26 08:00] VITALS: BP 105/55; PULSE 106; RESP 14; TEMP 36.8; O2SAT 96
[2025-09-26 20:00] VITALS: BP 121/77; PULSE 88; RESP 16; TEMP 37.5; O2SAT 96
[2025-09-27 07:51] VITALS: BP 104/64; PULSE 88; RESP 16; TEMP 36.8; O2SAT 96
--- NOTE | 2025-09-27 15:04 | P.DS_ITS ---
DS: Providers Provider Date of admission: 09/21/25 16:14 Date of discharge: 09/27/25 Primary care physician: Rosanne Physician Attending physician on admission: Izabel Salomon Attending physician on discharge: Izabel Salomon DS: Diagnosis Discharge Diagnosis (1) Severe major depression without psychotic features: Status: Acute (2) PTSD (post-traumatic stress disorder): Status: Acute (3) OCD (obsessive compulsive disorder): Status: Acute (4) ADHD (attention deficit hyperactivity disorder), combined type: Status: Acute DS: Medications Discharge Medications Home Medications: Previous Rx's ?Medication ?Instructions ?Recorded hydroxyzine HCl 25 mg tablet 25 mg PO BID PRN mild anx iety 30 09/27/25 days #60 tabs methylphenidate HCl 5 mg tablet 5 mg PO BID@0830,1330 ADHD, 09/27/25 combined type 30 days #60 tabs risperidone 0.5 mg tablet See Rx Instructions .Route 1 11/28/24 .COMPLEX 30 days #60 tabs sertraline 25 mg tablet See Rx Instructions .Route 1 11/28/24 .COMPLEX 30 days #30 tabs Mental Status Exam Mental Status Exam Narrative: Appearance: Casually dressed. Grooming/hygiene wnl. Good eye contact. Attitude:Cooperative. Speech: Fluent and wnl in regard to volume, tone, prosody Motor activity: Calm and without any tics, tremors or dyskinesias. Steady gait Mood: better Affect: appropriate, reactive, bright Thought process: Generally goal directed, far less circumstantial than on admission Thought content: Denies SI/violent ideation. Future oriented. Perception: Pt denies AHVH and does not appear to respond to internal stimuli. Alert/oriented in all spheres Cognition: Grossly intact Insight: intact Judgment: intact DS: Summary Hospital Course Hospital Course: Mr. Rangel is a 24 yo SWM with h/o ADHD, suspected OCD & PTSD, anxiety and depression who presented to the [facility] ED due to SI. He was [place] [facility] [place] and [place]. Pt reports that for the past several months, he's felt miserable 24-7 , is incapable of doing anything that he likes or wants to do, and lately, he's had more intense intrusive thoughts related to suicide. He reports that he would be in the shower and suddenly start thinking of buying a gun and shooting himself, then the thoughts would pass and the SI subsided. He reports that he has wanted to lately but denies any plan or intent to actually harm himself. He was diagnosed with ADHD in childhood but his mother didn't believe in medication and he didn't try anything till college. He reports that he was identified as gifted when he was young and was able to absorb information quickly, without studying. He describes himself as very impulsive and hyper as a kid, would annoy people and felt like he had no control over it. He didn't do his homework but got B's and C's since he did well on exams. He feels like he has PTSD related to his mom bullying him. She reportedly told him his brain didn't work right and his parents would yell at him and ground him for not doing his homework. He was a senior in in spring (during ) and his mom stressed him out and told him he wouldn't graduate, which caused him to feel suicidal. He went to his grandparents' house to get away from her. She constantly texted his grandparents to make sure he was doing his homework and wouldn't allow him to use a computer. He reports feeling repulsed by his mom for the first time in his life at that point. He attended [employer] but has had to take time off due to mental health reasons twice. He met w/ a therapist at the counseling center, who felt like the pt likely has PTSD, which he attributes to the bullying from his mom. He feels like his ability to process new information has been extremely slow, in the setting of racing thoughts, thinking about 15 things at a time . hypervigilance, and being in fight or flight . He failed every class last semester at [employer], including easy courses. He plans to take the rest of the year off. PCL-5 done on 09/22/25 was significant for the following sx of PTSD: Re-experiencing * repeated, disturbing, unwanted memories of stressful experiences and strong physical reactions in response to reminders of stressful experiences- quite a bit * flashbacks and feeling very upset with reminders of stressful experience- moderately Avoidance * Avoids external reminders of stressful experiences extremely Negative alterations in cognition and mood * Couldn't remember anything from high school when he turned 21 extremely * strong negative believes about himself, blames self extremely * strong feelings of guilt and shame extremely * loss of interest in activities he used to enjoy extremely * emotional detachment quite a bit * trouble feeling positive feelings extremely Trauma-related arousal and reactivity * irritability/anger outbursts - quite a bit * hypervigilance, jumpy, easily startled, difficulty concentrating, difficulty falling asleep: extremely * * * He reports having intrusive thoughts and compulsions since childhood but never had a formal dx of OCD. He completed the Y-BOCS on 09/24 and endorsed the following- * Longstanding obsessions related to fear of contamination, magical thinking (s/a something bad woud happen to his family if he didn't engage in his rituals), fear of not saying just the right thing, intrusive sounds/words, concern with illness, excessive concern regarding his appearance and fear that he will forget to breath * Longstanding compulsions including excessive handwashing, checking locks/stoves etc, checking that nothing terrible did/will happen * Previous obsessions related to fear of blurting out obscenities, fear of doing something embarassing, fear of stealing things, fear of being responsible for something terrible happening, needing to know or remember, fear of saying certain things, fear of losing things. * Previous compulsions including re-reading/re-writing and repeating routine activities s/a opening and closing doors Adult ADHD Self-Report Scale completed on 09/24 Inattententive sx: * procrastinates on tasks requiring a lot of thought very often * difficulty keeping attention on boring/repetitive work very often * misplaces or has difficulty finding things at home/work very often * distracted by activity/noise sometimes * difficulty wrapping up final details of projects sometimes * careless mistakes- sometimes Hyperactive/Impulsive Sx: * fidgets/squirms very often * feels overly active and compelled to do things like he's driven by a motor often * leaves seat in situations where he's supposed to remain seated - sometimes * feels restless/fidgety- sometimes * difficulty unwinding very often * talks too much in social situations often * interrupts others in conversations very often * difficulty with turn taking often * Interrupts others when they're busy sometimes Sue screen- negative Perceptual disturbances- had one episode where he completely lost touch with reality while in the shower, felt like multiple people were inside of him. Denies h/o AHVH Sleep- chronic difficulty with falling asleep due to racing thoughts. Difficulty getting out of bed in the morning. Past Psychiatric History: No current outpatient psychiatrist or therapist No current psychotropic meds No h/o IPLOC, respite, PHP Prior med trials: Adderall and Ritalin in college-- didn't notice much of a difference but was very stressed at the time Initial Tx Plan: Admitted [place] [facility] [place] and stabilization CV 15 min safety checks CBC, BMP, tox screen and EKG reviewed from [facility]- [facility] Ordered A1c and lipid panel Start sertraline 25 mg tomorrow for tx of OCD, MDD Start risperidone .5 mg qhs + .25 mg tid prn for off-label tx of hyper-arousal sx, obsessive/racing thoughts Will likely trial a stimulant after assessing response to the risperidone PRN hydroxyzine for anxiety and trazodone for insomnia 09/23: Slept well, decreased intrusive thoughts after taking first dose of risperidone .5 mg last night. denies SI. denies med SE. Pt agreeable w/ plan to start methylphenidate IR 5 mg tomorrow am for tx of ADHD. -Previously tried Adderall in college- felt too jittery. Methylphenidate ER- caused insomnia If pt can't tolerate the stimulants, will trial guanfacine 09/24: Mood/anxiety have significantly improved. Risperidone increased to .75 mg last night and he is tolerating it well. Will titrate MPH IR to 5 mg bid tomorrow and can switch to [facility] ER 18 mg on Saturday if he tolerates the 10 mg tomorrow. He thinks he had been on Concerta 36 mg in the past, which caused insomnia and didn't help since he was so stressed and sleep deprived at the time. Discussed d/c planning for early next wk and pt felt comfortable w/ that plan 09/26: Methylphenidate ER/Concerta was not on formulary, so pt was continued on methylphenidate IR 5 mg bid. Pt reported significant improvement in his mood and ADHD symptoms. He worked on calculus problems that he asked nursing staff to print out and was pleased that he was able to do them. Pt interacted appropriately with peers and staff and did not engage in any behavioral issues. He denied SI, violent ideation, or sx of psychosis on the day of discharge. He denied medication side effects. He felt safe with being discharged home. Status at Discharge Functional status at discharge: independent ambulation Overall status at discharge: patient is back to baseline Time Spent with Patient Time attestation: Total time managing care of this patient today ____ minutes. Time spent: Less than 30 minutes Discharge Plan Discharge Anticipated Discharge Date/Time: 09/27/25 12:00 Patient Disposition: Home, Self-Care Discharge Diagnosis: MDD, PTSD, OCD, ADHD Referrals: Pallavi Alvarado (Case Management) [Other] - 10/01/25 8:00 am Referral Note: IN OFFICE APPOINTMENT Stephanie Trevino (Therapy) [Other] - 10/01/25 8:30 am Referral Note: IN OFFICE APPOINTMENT Lindsey Romero (Psychiatry) [Other] - 10/19/25 9:30 am Referral Note: IN OFFICE APPOINTMENT Gabriela Molina (Psychiatry) [Other] - 10/28/25 2:00 pm Referral Note: IN OFFICE APPOINTMENT [facility] [Provider Group] - 1 Week Referral Note: 09-27-25 [facility] was added to patients chart. Please call [phone] or your primary care provider to schedule a follow up appt within 7-10 days of discharge. No release or PCP on file. Discharge Medications: New hydroxyzine HCl 25 mg Tablet 25 mg PO BID PRN (Reason: mild anxiety) 30 Days Qty: 60 0RF methylphenidate HCl 5 mg Tablet 5 mg PO BID@0830,1330 30 Days Qty: 60 0RF Rx Instructions: Partial Fill upon patient request. sertraline 25 mg Tablet See Rx Instructions .ROUTE .COMPLEX 30 Days Qty: 30 0RF Rx Instructions: Take 1/2 tab po qd x 2 days then take 1 tab qd risperidone 0.5 mg tablet See Rx Instructions .ROUTE .COMPLEX 30 Days Qty: 60 0RF Rx Instructions: Take 1.5 tab po qhs. May take additional 1/2 tab po qd prn for severe anxiety Discharge Orders: Discharge Order (Routine); Ordered 09/27/25 Ordered By: Izabel Salomon Diet: Regular diet Activity on Discharge: No Restrictions Stand Alone Forms: Patient Portal Discharge page, Community Support Print Language: Beninese Care Plan Goals: Maintain safe behaviors Practice coping skills Take medications as prescribed Maintain regular follow-ups with your outpatient providers Health Concerns: depression, anxiety, ADHD Plan of Treatment: Follow up with your psychiatric provider, PCP and other outpatient providers Take your medication as prescribed Assessment: Risk assessment at the time of discharge: Patient was interviewed on the day of discharge and found to be fully oriented, without any SI or violent ideation. Pt has improved insight and judgment and plans to continue treatment Pt is not at imminent risk of harm to self or others and has a safety plan that includes presenting to the closest ER or calling 911 if feeling unsafe. Pt has been observed closely by unit staff and has not engaged in any behaviors that suggest dangerous to self or others and has demonstrated appropriate behaviors and impulse control. Discharge Date/Time: 09/27/25 11:50
== END 2025-09-27 11:50 | disposition home or self-care (01) | DRG 885 ==
PROVIDERS: Admitting Provider Psychiatry & Neurology Psychiatry; Visit Provider Psychiatry & Neurology Psychiatry
DX: F33.2 Major depressive disorder, recurrent severe without psychotic features (principal); Z23 Encounter for immunization; F43.10 Post-traumatic stress disorder, unspecified; F42.9 Obsessive-compulsive disorder, unspecified; F90.2 Attention-deficit hyperactivity disorder, combined type; Z79.899 Other long term (current) drug therapy
CPT/HCPCS: 36415; 80061; 83036; 90656

== ENCOUNTER → 2025-09-21 16:14 | Outpatient (BNV) | payer OTHER, SELFPAY | PROVIDERS: Admitting Provider Psychiatry & Neurology Psychiatry; Visit Provider Nurse Practitioner Family | DX: F90.9 Attention-deficit hyperactivity disorder, unspecified type (principal) | CPT/HCPCS: 99221 ==

== ENCOUNTER → 2025-09-21 16:14 | Outpatient (BNV) | payer OTHER, SELFPAY | PROVIDERS: Admitting Provider Psychiatry & Neurology Psychiatry; Visit Provider Psychiatry & Neurology Psychiatry | DX: F33.2 Major depressive disorder, recurrent severe without psychotic features (principal); F43.11 Post-traumatic stress disorder, acute; F42.9 Obsessive-compulsive disorder, unspecified; F90.2 Attention-deficit hyperactivity disorder, combined type | CPT/HCPCS: 90792; 99232 ==